=== PATIENT | male | born 1950 | race Caucasian/White ===

== ENCOUNTER 2022-08-16 20:00 | Emergency (ER) | payer OTHER, SELFPAY ==
[2022-08-16 20:01] VITALS: BP 133/82; PULSE 63; RESP 18; TEMP 36.6; O2SAT 98
--- NOTE | 2022-08-16 21:00 | PC.NURSE ---
pt to desk, the candy has gone down , no more discomfort in area. stated he would return if need be
== END 2022-08-16 22:10 | disposition left against medical advice (07) ==
LOC: ANHED 22:01
PROVIDERS: PCP Emergency Medicine
DX: T17.228A Food in pharynx causing other injury, initial encounter (principal)
CPT/HCPCS: 99199

== ENCOUNTER 2023-08-15 03:03 | Day surgery (SDC) | payer OTHER, SELFPAY ==
[2023-05-31 10:53] VITALS: BMI 27.4
--- NOTE | 2023-06-17 11:00 | PC.NURSE ---
Patient called regarding upcoming procedure. Reviewed preop instructions, appointment times, and procedure prep.
[2023-08-08 10:10] VITALS: BMI 26.6
[2023-08-15 10:15] VITALS: BP 126/89; PULSE 107; RESP 18; TEMP 36.2; O2SAT 98
[2023-08-15] MEDS: LACTATED RINGERS 1,000 ML 150 ML IV CONT (10:23)
--- NOTE | 2023-08-15 10:39 | WPDANESEPPF ---
Anes - Initial Pre Proc Eval Procedure: Operation Date: 08/15/23 11:30 Proposed Procedures p Screening Colonoscopy - Carlo Dupree MD Date/Time: 08/15/23 10:39 Surgeon: Carlo Dupree MD Pre Op Diagnosis: neoplasm screening Patient Data Age: 73 Gender: M Height: 1.73 m Weight: 86.1 kg Last Vital Signs Temp 97.1 F L 08/15/23 10:15 Pulse 107 H 08/15/23 10:15 Resp 18 08/15/23 10:15 BP 126/89 08/15/23 10:15 Pulse Ox 98 08/15/23 10:15 O2 Del Method Room Air 08/15/23 10:15 Allergies Allergy/AdvReac Type Severity Reaction Status Date / Time No Known Allergies Allergy Verified 08/15/23 10:13 Home Medications Medication Instructions Recorded Confirmed Type aspirin 81 mg tablet,delayed 81 mg PO DAILY 05/25/19 08/15/23 History release atorvastatin 40 mg tablet 40 mg PO DAILY 05/25/19 08/15/23 History metoprolol succinate 25 mg 25 mg PO DAILY 05/25/19 08/15/23 History tablet,extended release 24 hr timolol 0.25 % eye drops (Betimol) See Rx Instructions .Route .COMPLEX 05/25/19 08/15/23 History lorazepam 0.5 mg tablet (Ativan) 0.5 mg PO BID PRN anxiety #30 tabs 09/14/22 08/15/23 Rx pantoprazole 40 mg tablet,delayed 40 mg PO QAM #90 tabs 06/16/23 08/15/23 Rx release olanzapine 15 mg tablet See Rx Instructions .Route 08/05/23 08/15/23 Rx .COMPLEX #90 tabs escitalopram oxalate 20 mg tablet See Rx Instructions .Route 08/15/23 08/15/23 Rx .COMPLEX #90 tabs Patient hx anesthesia problems: none Family hx anesthesia problems: none Results Review: All pre-operative results and documents have been reviewed as part of the pre-operative evaluation. [facility] Past Medical History Medical History (Updated 09/14/22 @ 13:50 by Robert Hardy MD) Depression HLD (hyperlipidemia) Social History Social History Smoking status: Former smoker Tobacco type: cigarettes Smoking end date: 05/30/91 Alcohol intake: never Substance use: never Substance use type: does not use Living arrangements: with family Spiritual care concerns: No Anes - Eval Final PreProcedure Day of Procedure 08/15/23 10:39 Patient weight: obese Heart: regular rate and rhythm Lungs: clear to auscultation Airway: Mallampati scale class II Neurological: alert and oriented Last oral intake: >/= 8 hours ASA classification: III Emergent: no Anesthetic plan: proceed Anesthesia type and monitoring: general GIVS and standard monitoring Results Review: All pre-operative results and documents have been reviewed as part of the pre-operative evaluation. Informed Consent: The patient's anesthetic plan and its attendant risks and benefits were discussed with the patient/family/POA. Questions were solicited and answers provided to the satisfaction of the patient/family/POA.
--- NOTE | 2023-08-15 10:42 | PM.HPGS ---
History of Present Illness History of Present Illness Consent: Risks, benefits, and alternatives have been discussed and questions answered. Patient agrees to proceed with procedure. Chief complaint: neoplasm screening Narrative: Howard Bateman is a 73 year old male here for colonoscopy, last one 6 years ago Review of Systems Review of Systems: All systems reviewed & are unremarkable except as noted in HPI and below PMFSH Past Medical History Medical History (Updated 08/15/23 @ 10:43 by Carlo Dupree MD) Colon cancer screening Depression HLD (hyperlipidemia) Social History Social History Smoking status: Former smoker Tobacco type: cigarettes Smoking end date: 05/30/91 Alcohol intake: never Substance use: never Substance use type: does not use Living arrangements: with family Spiritual care concerns: No Meds Home Medications and Allergies Home Medications Medication Instructions Recorded Confirmed Type aspirin 81 mg tablet,delayed 81 mg PO DAILY 05/25/19 08/15/23 History release atorvastatin 40 mg tablet 40 mg PO DAILY 05/25/19 08/15/23 History metoprolol succinate 25 mg 25 mg PO DAILY 05/25/19 08/15/23 History tablet,extended release 24 hr timolol 0.25 % eye drops (Betimol) See Rx Instructions .Route .COMPLEX 05/25/19 08/15/23 History lorazepam 0.5 mg tablet (Ativan) 0.5 mg PO BID PRN anxiety #30 tabs 09/14/22 08/15/23 Rx pantoprazole 40 mg tablet,delayed 40 mg PO QAM #90 tabs 06/16/23 08/15/23 Rx release olanzapine 15 mg tablet See Rx Instructions .Route 08/05/23 08/15/23 Rx .COMPLEX #90 tabs escitalopram oxalate 20 mg tablet See Rx Instructions .Route 08/15/23 08/15/23 Rx .COMPLEX #90 tabs Allergies Allergy/AdvReac Type Severity Reaction Status Date / Time No Known Allergies Allergy Verified 08/15/23 10:13 Vital Signs Vital Signs - 24 hr 08/15/23 10:15 Temperature 97.1 F L Pulse Rate 107 H Respiratory Rate 18 Blood Pressure 126/89 Pulse Oximetry 98 Oxygen Delivery Room Air Exam Const: General: comfortable and no acute distress HENMT: Face/Nose/Sinus: Normal nares present Eyes: General: appearance normal, both eyes and all related structures Neck: Neck: no JVD Resp: Auscultation: clear to auscultation bilaterally Cardio: Rate: regular rate Rhythm: regular rhythm GI: Inspection: non-distended GI Palp: Yes Soft to palpation Skin: General skin exam: normal color Neuro: General: gait normal Speech: normal speech Extrem: General: normal to inspection Psych: Mental Status: mental status grossly normal Assessment and Plan Assessment and plan (1) Colon cancer screening: Code(s): Z12.11 - Encounter for screening for malignant neoplasm of colon Status: Acute Assessment and Plan: colonoscopy
[2023-08-15 11:04] VITALS: BP 123/74; PULSE 72; RESP 18; O2SAT 98
[2023-08-15 11:14] VITALS: BP 136/67; PULSE 66; RESP 22; O2SAT 97
[2023-08-15 11:24] VITALS: BP 124/82; PULSE 72; RESP 21; O2SAT 99
== END 2023-08-15 11:30 | disposition home or self-care (01) ==
PROVIDERS: PCP Emergency Medicine; Visit Provider Internal Medicine Gastroenterology
PROC: 0DJD8ZZ Inspection of Lower Intestinal Tract, Via Natural or Artificial Opening Endoscopic (ICD-10-PCS; CPT 45378; principal; 2023-08-15 11:30)
DX: Z12.11 Encounter for screening for malignant neoplasm of colon (principal); E78.5 Hyperlipidemia, unspecified; F32.A Depression, unspecified; E66.9 Obesity, unspecified; Z68.28 Body mass index [BMI] 28.0-28.9, adult; Z79.82 Long term (current) use of aspirin; Z87.891 Personal history of nicotine dependence
CPT/HCPCS: G0121; J2704; J7120

== ENCOUNTER 2023-09-27 08:04 | Outpatient (CLI) | payer OTHER, SELFPAY ==
--- NOTE | ~2023-09-27 | US_ITS ---
Abdominal Sonogram: Real-time sonographic imaging of the abdomen was performed. Clinical History: Varicose veins Findings: The liver appears normal with no evidence of mass lesion or bile duct dilatation. Main por bertha vein demonstrates normal direction of flow. The spleen is normal in size without evidence of foca l lesion. The gallbladder is absent, compatible prior cholecystectomy. The common bile duct measures 4 mm. The visualized pancreas, aorta, and IVC are unremarkable. The right kidney measures 9.6 cm i n length and the left kidney measures 10.8 cm. There is no hydronephrosis or renal calculus. Impression: Unremarkable abdominal ultrasound. Reviewed, dictated and finalized at location M. Impression: Unremarkable abdominal ultrasound.
== END 2023-09-27 08:05 | disposition home or self-care (01) ==
LOC: ANHIMG 08:08
PROVIDERS: PCP Emergency Medicine; Visit Provider Internal Medicine Gastroenterology
DX: I86.8 Varicose veins of other specified sites (principal)
CPT/HCPCS: 76700

== ENCOUNTER 2024-08-31 14:59 | Outpatient (CLI) | payer MEDICARE, SELFPAY ==
--- NOTE | ~2024-08-31 | CT_ITS ---
History: Dementia PROCEDURE: CT head without contrast. COMPARISON: 01/13/2019 TECHNIQUE: Axial imaging of the head performed from the skull base to the vertex without IV contrast. Sagittal a nd coronal reformations obtained. DLP: 605 mGy-cm FINDINGS: The ventricles are normal in size, shape and position. There is no mass, mass effect or midline shift. There is no abnormal extra-axial fluid collection or intracranial hemorrhage. Visualized paranasal sinuses are clear. The mastoid air cells are well aerated. No acute displaced fractures within the overlying cranium. Impression: No acute intracranial hemorrhage or suspicious mass effect. Reviewed, dictated and finalized at location A. Impression: No acute intracranial hemorrhage or suspicious mass effect.
== END 2024-08-31 15:00 | disposition home or self-care (01) ==
PROVIDERS: PCP Emergency Medicine; Visit Provider Emergency Medicine
DX: R25.1 Tremor, unspecified (principal); F03.90 Unspecified dementia, unspecified severity, without behavioral disturbance, psychotic disturbance, mood disturbance, and anxiety
CPT/HCPCS: 70450

== ENCOUNTER 2024-10-27 11:39 | Emergency (ER) | payer MEDICARE, SELFPAY ==
[2024-10-27] VITALS (28 sets, daily range): BP systolic 113–149; BP diastolic 64–101; PULSE 54–78; RESP 9–20; TEMP 36.7; O2SAT 94–100
--- NOTE | ~2024-10-27 | US_ITS ---
Limited ABDOMINAL ULTRASOUND (Doppler ultrasound interrogation techniques used as needed for this exa m.) Ordering provider: Zach Raines MD History: . portal vein abnormality . Comparison: None. FINDINGS: PANCREAS: Normal echotexture and size. PORTAL VEIN: Hepatopedal flow demonstrated. Numerous tortuous vessels are noted suggestive of caverno us transformation.. LIVER: Normal size and echotexture. No focal hepatic lesions or perihepatic fluid collections are carolyn ntified. BILIARY DUCTS: No intra or extrahepatic biliary dilation. Common bile duct measures 3.1 mm in diamete r which is normal for patient's age. GALLBLADDER: Surgically absent. IVC: Patent. FREE FLUID: None visualized within the upper abdomen. IMPRESSION: Cavernous transformation of the portal vein. Other appearances are unremarkable. Otherwise, [facility] Reviewed, dictated and finalized at location A. IMPRESSION: Cavernous transformation of the portal vein. Other appearances are unremarkable . Otherwise, normal limited abdominal ultrasound.
--- NOTE | ~2024-10-27 | CT_ITS ---
CT abdomen pelvis w con Ordering provider: Zach Raines MD History: 74 years Male with . Diarrhea, LLQ pain . Comparison: None. Technique: CT abdomen and pelvis with IV and without oral contrast. Automated exposure control and it erative reconstruction technique were employed. The dose-length product was 377.05 mGy-cm. 100 mL Omn ipaque 350 was given IV. Findings: VISUALIZED LOWER CHEST: Normal. UPPER ABDOMINAL ORGANS: Liver: Normal. Prominent vessels in the hilum of the liver is seen which may indicate cavernous trans formation of the portal vein. Ultrasound evaluation advised. Gallbladder: Status post cholecystectomy. Spleen: Normal. Stomach/duodenum: Sliding hiatus hernia. Pancreas: Normal. Adrenals: Normal. Kidneys: Tiny cysts in the left kidney midpole. PELVIC ORGANS: The bladder is underfilled. BOWEL AND MESENTERY: Colon: Thickening of the wall is seen involving the rectum, sigmoid colon and distal descending colon with fat stranding around the sigmoid colon suggestive of colitis versus diverticulitis. Minimal flu id in the left paracolic gutter and pelvis is seen. Proctitis is also noted. Normal appendix. Small Bowel: Normal. No obstruction. Peritoneum/mesentery: No free air or free fluid. No mesenteric lymphadenopathy. RETROPERITONEUM: Mild atheromatous disease of the abdominal aorta. No retroperitoneal lymphadenopat hy. MUSCULOSKELETAL: Superficial soft tissues: The superficial soft tissues are normal. Bones: Age appropriate degenerative changes of the spine. IMPRESSION: 1. Thickening of the rectosigmoid and distal descending colon with surrounding fat stranding suggest deon of diverticulitis versus colitis with fluid seen in the left paracolic gutter and pelvis. No absc ess formation or free air is seen. Clinical correlation and follow-up advised. 2. Prominent vessels in the lois hepatis which may indicate cavernous transformation of the portal vein. Ultrasound evaluation advised. 3. Sliding hiatus hernia. Reviewed, dictated and finalized at location A. IMPRESSION: 1. Thickening of the rectosigmoid and distal descending colon with surrounding fat stranding suggestive of diverticulitis versus colitis with fluid seen in t he left paracolic gutter and pelvis. No abscess formation or free air is seen. Clinical correlation and follow-up advised. 2. Prominent vessels in the lois hepatis which may indicate cavernous transfo rmation of the portal vein. Ultrasound evaluation advised. 3. Sliding hiatus hernia.
[2024-10-27 11:56] LABS: Basophils Percent Auto 0.5 % (0.2-1.2); Eosinophils Absolute Auto 0.1 K/mm3 (0-0.3); Eosinophils Percent Auto 1.7 % (0-4.4); Hematocrit 41.5 % (42.0-52.0); Immature Granulocyte Absolute 0.04 K/mm3 (0.00-0.031); Immature Granulocyte Percent A 0.5 % (0-0.5); Lymphocytes Absolute Auto 0.94 K/mm3 (0.9-3.2); Lymphocytes Percent Auto 12.4 % (18.3-44.2); Mean Corpuscular HGB Conc 31.3 g/dl (32-36); Mean Corpuscular Hemoglobin 29.5 pg (26-34); Mean Corpuscular Volume 94.1 fl (80-100); Mean Platelet Volume 8.9 fl (7.4-10.4); Monocytes Absolute Auto 0.6 K/mm3 (0.1-0.6); Monocytes Percent Auto 8.1 % (2.6-8.5); Neutrophils Absolute Auto 5.8 K/mm3 (1.3-6.7); Neutrophils Percent Auto 76.8 % (45.5-73.1); Platelet Count Result 354 k/mm3 (150-375); Red Blood Count 4.41 M/mm3 (4.6-6.20); Red Cell Distribution Width 12.5 % (11.5-14.5); White Blood Count 7.6 K/mm3 (4.5-10.0)
[2024-10-27 12:05] LABS: Alanine Aminotransferase 97 U/L (6-50); Albumin Level 3.6 g/dL (3.5-5.1); Alkaline Phosphatase 202 U/L (38-126); Anion Gap 9 mmol/L (4-12); Aspartate Amino Transferase 101 U/L (17-59); Bilirubin,Total 0.8 mg/dL (0.2-1.3); Blood Urea Nitrogen 10 mg/dL (9-20); Calcium 8.7 mg/dL (8.4-10.2); Carbon Dioxide 24 mmol/L (22-30); Chloride 106 mmol/L (98-107); Estimated CRCL calculation 73 ml/min; Estimated Glomerular Filt Rate > 60; Glucose 120 mg/dL (65-110); Potassium 3.5 mmol/L (3.4-5.0); Sodium 139 mmol/L (137-145)
[2024-10-27 12:07] LABS: INR 1.3; Partial Thromboplastin Time 28.7 Seconds (22.3-36.8); Prothrombin Time 15.8 Seconds (11.1-14.7)
[2024-10-27] MEDS: SODIUM CHLORIDE 0.9% IV 2,000 ML 999 ML IV CONT (13:50)
[2024-10-27 14:26] LABS: Influenza A QL RT-PCR Negative (Negative); Influenza B QL RT-PCR Negative (Negative); RSV RNA, RT-PCR Negative (Negative); SARS-CoV-2 RNA PCR Negative (Negative)
--- NOTE | 2024-10-27 14:39 | ED_ITS ---
HPI - General Adult General Chief complaint: Weakness Stated complaint: weak, white stool, wheezy stomach Time Seen by Provider: 10/27/24 12:45 History of Present Illness HPI narrative: 74-year-old male presenting for weakness. Patient had watery diarrhea for the last week. He has also had decreased oral intake and weakness. Patient denies fevers chills chest pain difficulty breathing or urinary symptoms. No sick contacts at home. No recent antibiotics. No travel history. Related Data Home Medications ?Medication ?Instructions ?Recorded ?Confirmed ?Last Taken ?Type aspirin 81 mg tablet,delayed 81 mg PO DAILY 05/25/19 08/21/24 08/13/23 History release atorvastatin 40 mg tablet 40 mg PO DAILY 05/25/19 08/21/24 08/13/23 History metoprolol succinate 25 mg 25 mg PO DAILY 05/25/19 08/21/24 08/13/23 History tablet,extended release 24 hr timolol 0.25 % eye drops (Betimol) See Rx Instructions .Route .COMPLEX 05/25/19 08/21/24 08/13/23 History Allergies Allergy/AdvReac Type Severity Reaction Status Date / Time No Known Allergies Allergy Verified 10/27/24 11:41 [facility] Past Medical History Medical History Rash and nonspecific skin eruption URI with cough and congestion Sinus congestion Excessive ear wax Insomnia Fatigue Vitamin D deficiency Rash of hands Mixed hyperlipidemia Gastroesophageal reflux disease without esophagitis Cardiac arrhythmia Candidal dermatitis ASHD (arteriosclerotic heart disease) Colonic varices Colon cancer screening Depression HLD (hyperlipidemia) Social History Social History Smoking status: Former smoker Tobacco type: cigarettes Smoking end date: 05/30/91 Alcohol intake: never Substance use: never Substance use type: does not use Do You Feel Safe in your Home?: Yes Lack of Transportation: No Lack of Food: Never True Current Housing: I Have Housing Concerned About Future Housing: No Difficulty Paying Gas/Electric Bills: No Difficulty Paying for Meds: No Currently Unemployed: No Education: Decline to Answer Difficulty w/ Childcare or Family Care: No Living arrangements: with family Spiritual care concerns: No Exam 2 Narrative: APPEARANCE: No apparent distress. Head: atraumatic. EYES: EOMI, NOSE: Atraumatic NECK: Trachea midline RESPIRATORY: No increased rate of breathing clear to auscultation CARDIOVASCULAR: RRR, no peripheral edema ABDOMINAL: Tenderness in the left abdomen without guarding or rebound no CVA tenderness MUSCULOSKELETAl: No obvious deformities NEURO: Alert. Moving 4/4 extremities SKIN:: Warm, dry. Normal color PSYCHIATRIC: Normal affect Course Vital Signs Vital signs: Vital Signs Temperature 98.1 F 10/27/24 11:42 Pulse Rate 74 10/27/24 11:42 Respiratory Rate 20 10/27/24 11:42 Blood Pressure 123/82 10/27/24 11:42 Pulse Oximetry 94 10/27/24 11:42 Oxygen Delivery Room Air 10/27/24 11:42 Temperature 98.1 F 10/27/24 11:42 Pulse Rate 64 10/27/24 15:33 Respiratory Rate 14 10/27/24 15:33 Blood Pressure 113/79 10/27/24 15:33 Pulse Oximetry 98 10/27/24 15:33 Oxygen Delivery Room Air 10/27/24 11:42 Medical Decision Making [facility] Narrative Medical decision making narrative: -Course: 74-year-old male presenting with weakness after having diarrhea for approximately 1 week. He has also had decreased oral intake. He has some tenderness in the left lower quadrant. Diarrhea has been watery without blood. No fevers. CT abdomen pelvis showed colitis versus diverticulitis of the distal colon. 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 I consulted Ivan and discussed patient's findings. 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 Patient will be treated for diverticulitis. After he received fluids he was feeling much better and was able ambulate around the ED with steady gait and eat flu food without difficulty. He will be discharged to follow-up with GI. Return precautions were discussed with the patient and his they will have a low threshold to return to the ED if his condition is to worsen. -DDX includes but is not limited to: gastroenteritis, sepsis, dehydration, UTI, pneumonia, viral syndrome Vital Signs Vital Signs: Vital Signs Temperature 98.1 F 10/27/24 11:42 Pulse Rate 74 10/27/24 11:42 Respiratory Rate 20 10/27/24 11:42 Blood Pressure 123/82 10/27/24 11:42 Pulse Oximetry 94 10/27/24 11:42 Oxygen Delivery Room Air 10/27/24 11:42 Temperature 98.1 F 10/27/24 11:42 Pulse Rate 64 10/27/24 15:33 Respiratory Rate 14 10/27/24 15:33 Blood Pressure 113/79 10/27/24 15:33 Pulse Oximetry 98 10/27/24 15:33 Oxygen Delivery Room Air 10/27/24 11:42 Lab Data 10/27/24 11:49 10/27/24 11:48 Labs: Lab Results 10/27/24 10/27/24 10/27/24 Range/Units 11:48 11:49 13:47 WBC 7.6 (4.5-10.0) K/mm3 RBC 4.41 L (4.6-6.20) M/mm3 Hgb 13.0 L (14.0-18.0) g/dL Hct 41.5 L (42.0-52.0) % MCV 94.1 (80-100) fl MCH 29.5 (26-34) pg MCHC 31.3 L (32-36) g/dl RDW 12.5 (11.5-14.5) % Plt Count 354 (150-375) k/mm3 MPV 8.9 (7.4-10.4) fl Immature Gran % (Auto) 0.5 (0-0.5) % Neut % (Auto) 76.8 H (45.5-73.1) % Lymph % (Auto) 12.4 L (18.3-44.2) % [place] % (Auto) 8.1 (2.6-8.5) % Eos % (Auto) 1.7 (0-4.4) % Baso % (Auto) 0.5 (0.2-1.2) % Lymph # (Auto) 0.94 (0.9-3.2) K/mm3 [place] # (Auto) 0.6 (0.1-0.6) K/mm3 Eos # (Auto) 0.1 (0-0.3) K/mm3 Baso # (Auto) 0.0 (0.0-0.1) K/mm3 Abs Immat Gran (auto) 0.04 H (0.00-0.031) K/mm3 Absolute Neuts (auto) 5.8 (1.3-6.7) K/mm3 Absolute Nucleated RBC 0.000 (0.0-0.012) K/mm3 Nucleated RBC % 0.0 (0.0-0.2) % PT 15.8 H (11.1-14.7) Seconds INR 1.3 APTT 28.7 (22.3-36.8) Seconds Sodium 139 (137-145) mmol/L Potassium 3.5 (3.4-5.0) mmol/L Chloride 106 (98-107) mmol/L Carbon Dioxide 24 (22-30) mmol/L Anion Gap 9 (4-12) mmol/L BUN 10 (9-20) mg/dL Creatinine 0.76 (0.7-1.3) mg/dL Estim Creat Clear Calc 73 ml/min Estimated GFR > 60 (59 - ) Glucose 120 H (65-110) mg/dL Calcium 8.7 (8.4-10.2) mg/dL Total Bilirubin 0.8 (0.2-1.3) mg/dL AST 101 H (17-59) U/L ALT 97 H (6-50) U/L Alkaline Phosphatase 202 H (38-126) U/L Total Protein 8.0 (6.3-8.2) g/dL Albumin 3.6 (3.5-5.1) g/dL Urine Color (Yellow) Urine Appearance (Clear) Urine pH (5.0-9.0) Ur Specific [place] (1.001-1.035) Urine Protein (Negative) mg/dL Urine Glucose (UA) (Negative) mg/dL Urine Ketones (Negative) mg/dL Ur Blood (Man) (Negative) Urine Nitrate (Negative) Urine Bilirubin (Negative) Urine Urobilinogen (<2.0) mg/dL Leukocyte Esterase Rfl (Negative) JA/UL Influenza A (RT-PCR) Negative (Negative) Influenza B (RT-PCR) Negative (Negative) RSV (RT-PCR) Negative (Negative) SARS-CoV-2 RNA (RT-PCR) Negative (Negative) Blood Type B Negative Antibody Screen Negative 10/27/24 Range/Units 15:23 WBC (4.5-10.0) K/mm3 RBC (4.6-6.20) M/mm3 Hgb (14.0-18.0) g/dL Hct (42.0-52.0) % MCV (80-100) fl MCH (26-34) pg MCHC (32-36) g/dl RDW (11.5-14.5) % Plt Count (150-375) k/mm3 MPV (7.4-10.4) fl Immature Gran % (Auto) (0-0.5) % Neut % (Auto) (45.5-73.1) % Lymph % (Auto) (18.3-44.2) % [place] % (Auto) (2.6-8.5) % Eos % (Auto) (0-4.4) % Baso % (Auto) (0.2-1.2) % Lymph # (Auto) (0.9-3.2) K/mm3 [place] # (Auto) (0.1-0.6) K/mm3 Eos # (Auto) (0-0.3) K/mm3 Baso # (Auto) (0.0-0.1) K/mm3 Abs Immat Gran (auto) (0.00-0.031) K/mm3 Absolute Neuts (auto) (1.3-6.7) K/mm3 Absolute Nucleated RBC (0.0-0.012) K/mm3 Nucleated RBC % (0.0-0.2) % PT (11.1-14.7) Seconds INR APTT (22.3-36.8) Seconds Sodium (137-145) mmol/L Potassium (3.4-5.0) mmol/L Chloride (98-107) mmol/L Carbon Dioxide (22-30) mmol/L Anion Gap (4-12) mmol/L BUN (9-20) mg/dL Creatinine (0.7-1.3) mg/dL Estim Creat Clear Calc ml/min Estimated GFR (59 - ) Glucose (65-110) mg/dL Calcium (8.4-10.2) mg/dL Total Bilirubin (0.2-1.3) mg/dL AST (17-59) U/L ALT (6-50) U/L Alkaline Phosphatase (38-126) U/L Total Protein (6.3-8.2) g/dL Albumin (3.5-5.1) g/dL Urine Color Yellow (Yellow) Urine Appearance Clear (Clear) Urine pH 7.5 (5.0-9.0) Ur Specific [place] > 1.045 H (1.001-1.035) Urine Protein Negative (Negative) mg/dL Urine Glucose (UA) Negative (Negative) mg/dL Urine Ketones Negative (Negative) mg/dL Ur Blood (Man) Negative (Negative) Urine Nitrate Negative (Negative) Urine Bilirubin Negative (Negative) Urine Urobilinogen 1.0 (<2.0) mg/dL Leukocyte Esterase Rfl Negative (Negative) JA/UL Influenza A (RT-PCR) (Negative) Influenza B (RT-PCR) (Negative) RSV (RT-PCR) (Negative) SARS-CoV-2 RNA (RT-PCR) (Negative) Blood Type Antibody Screen Discharge Plan Discharge Clinical Impression: Colitis, Dehydration, Cavernous transformation of portal vein Patient Disposition: Home Condition: Stable Instructions: Antibiotic Form, Colitis (ED) Additional Instructions: He was seen emergency department for colitis/diverticulitis. Please complete course of Augmentin. Please follow-up with the GI due to her listed below for further management her colitis as well as further evaluation your cavernous portal vein transformation. If you are getting worse, you develop bloody diarrhea fevers or severe abdominal pain please return to the ED immediately. Patient Language: Tamazight Prescriptions: New ondansetron 4 mg tablet,disintegrating 4 mg PO Q8H PRN (Reason: nausea and vomiting) Qty: 30 0RF amoxicillin-pot clavulanate 875-125 mg tablet 1 tablet PO Q8H Qty: 15 0RF No Action venlafaxine 150 mg capsule,extended release 24hr 150 mg PO DAILY Qty: 90 2RF Betimol 0.25 % drops See Rx Instructions .ROUTE .COMPLEX Rx Instructions: instill 1 drop by ophthalmic route 2 times everyday into affected eye(s) ; metoprolol succinate 25 mg tablet extended release 24 hr 25 mg PO DAILY atorvastatin 40 mg tablet 40 mg PO DAILY aspirin 81 mg tablet,delayed release (DR/EC) 81 mg PO DAILY donepezil [Aricept] 10 mg tablet 10 mg PO DAILY Qty: 90 2RF lorazepam [Ativan] 0.5 mg tablet 0.5 mg PO BID PRN (Reason: anxiety) Qty: 30 1RF pantoprazole 40 mg tablet,delayed release (DR/EC) See Rx Instructions .ROUTE .COMPLEX Qty: 90 2RF Dose Instruction: TAKE 1 TABLET BY MOUTH ONCE DAILY . APPOINTMENT REQUIRED FOR FUTURE REFILLS Rx Instructions: TAKE 1 TABLET BY MOUTH ONCE DAILY . APPOINTMENT REQUIRED FOR FUTURE REFILLS olanzapine 15 mg tablet See Rx Instructions .ROUTE .COMPLEX Qty: 90 2RF Dose Instruction: TAKE 1 TABLET BY MOUTH AT BEDTIME Rx Instructions: TAKE 1 TABLET BY MOUTH AT BEDTIME Follow-up/Referrals: Robert Hardy MD [Primary Care Provider] - Carlo Dupree MD [Physician] - 1 Week (Diverticulitis/Colitis, Cavernous transformation of portal vein)
[2024-10-27 15:28] LABS: Add Urine Microscopic? NO; Appearance Urine Clear (Clear); Bilirubin Urine Negative (Negative); Blood Urine Negative (Negative); Color Urine Yellow (Yellow); Glucose Urine UA Negative (Negative); Ketones Urine Negative (Negative); Leukocyte Esterase Ur Negative LEU/UL (Negative); Nitrate Urine Negative (Negative); Protein Urine Negative (Negative); Specific Grav Ur > 1.045 (1.001-1.035); pH Urine 7.5 (5.0-9.0)
== END 2024-10-27 18:26 | disposition home or self-care (01) ==
PROVIDERS: Emergency Medicine; Emergency Provider Emergency Medicine; PCP Emergency Medicine
DX: K52.9 Noninfective gastroenteritis and colitis, unspecified (principal); E86.0 Dehydration; I81 Portal vein thrombosis; I25.10 Atherosclerotic heart disease of native coronary artery without angina pectoris; E78.2 Mixed hyperlipidemia; Z20.822 Contact with and (suspected) exposure to COVID-19
CPT/HCPCS: 36415; 74177; 76705; 80053; 81003; 85025; 85610; 85730; 86850; 86900; 86901; 87637; 96360; 96361; 99284; J7030; Q9967

== ENCOUNTER 2024-11-14 11:59 | Outpatient (CLI) | payer MEDICARE, SELFPAY ==
--- NOTE | ~2024-11-14 | CT_ITS ---
EXAMINATION: CT abdomen pelvis w con DATE: 11/14/2024 12:28 INDICATION: Left lower quadrant abdominal pain. TECHNIQUE: Computed tomography (CT) of the abdomen and pelvis was performed with 100 mL Omnipaque-350 intravenous contrast. Automated exposure control and iterative reconstruction technique were employe d. The dose-length product was 383.77 mGy-cm. COMPARISON: 10/27/2024 FINDINGS: Lung bases are clear. Heart size is normal. Atherosclerotic coronary artery calcifications. No perica rdial or pleural effusion. Small sliding-type hiatal hernia. Cholecystectomy clips at the gallbladder fossa. There are multiple contrast opacified vessels along side the patient main portal vein at the lois hepatis which suggests possible cavernous transformation related to since resolved portal venou s thrombosis. Splenic and superior mesenteric veins are also patent as are the left and right portal veins. Liver, spleen, pancreas, bilateral adrenal glands and right kidney are normal. 1 cm left renal cyst. There is wall thickening along the descending and sigmoid colon with surrounding inflammatory stranding consistent with colitis. Small bowel and appendix are normal. Decompressed bladder is unrem arkable. Small amount of nonorganized ascites in the pelvis and along the left paracolic gutter. No o rganized abscess or free intraperineal gas. No pathologically enlarged abdominal or pelvic lymphadeno sandhya. Mild lumbar levocurvature with moderate spondylosis. Also moderate lower thoracic spondylosis with minimal to mild chronic anterior wedging of a few lower thoracic vertebral bodies. IMPRESSION: 1. Distal colitis which could be infectious, inflammatory or less likely ischemic in etiology. 2. Small sliding-type hiatal hernia. Reviewed, dictated and finalized at location A. IMPRESSION: 1. Distal colitis which could be infectious, inflammatory or less likely ischem ic in etiology. 2. Small sliding-type hiatal hernia.
== END 2024-11-14 12:00 | disposition home or self-care (01) ==
PROVIDERS: PCP Emergency Medicine; Visit Provider Nurse Practitioner
DX: I81 Portal vein thrombosis (principal); R10.32 Left lower quadrant pain; R19.04 Left lower quadrant abdominal swelling, mass and lump; R68.89 Other general symptoms and signs; K44.9 Diaphragmatic hernia without obstruction or gangrene; K52.89 Other specified noninfective gastroenteritis and colitis
CPT/HCPCS: 74177; Q9967

== ENCOUNTER 2024-11-27 19:30 | Inpatient (IN) | payer MEDICARE, SELFPAY ==
--- NOTE | ~2024-11-27 | MR_ITS ---
EXAMINATION: MR cervical spine wo con DATE: 11/29/2024 12:34 INDICATION: Weakness TECHNIQUE: Magnetic resonance imaging (MRI) of the cervical spine was performed without intravenous c ontrast. Sequences included sagittal T2-weighted FSE, sagittal T2-weighted FS FSE, sagittal T1-weight ed FSE, axial MERGE and axial T2-weighted FSE. COMPARISON: None FINDINGS: Bone alignment is normal. -C7 instrumented anterior spinal fusion with metallic magnetic field artifa ct consistent with interbody fusion device and anterior plate-screw fixation at each level. Vertebral body heights are normal. Bone marrow signal intensity is normal. Mild disc height loss at C4-C5. Cor d signal intensity is normal. 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 Cervical soft tissues are otherwise unremarkable. The following disc levels are speci fically discussed: C2-C3: The disc does not extend beyond the endplate margin. There is mild left uncovertebral joint os teoarthritis. There is severe right and moderate to severe left facet joint osteoarthritis. There is mild bilateral neural foraminal stenosis. There is no central canal stenosis. C3-C4: The disc does not extend beyond the endplate margin. There is mild bilateral uncovertebral jamilah nt osteoarthritis. There is moderate left and severe right facet joint osteoarthritis. There is mild bilateral neural foraminal stenosis. There is no central canal stenosis. C4-C5: Disc is bulging with annular fissure There is moderate right and moderate left uncovertebral j oint osteoarthritis. There is moderate right and severe left facet joint osteoarthritis. There is mil d right and moderate left neural foraminal stenosis. There is mild central canal stenosis. C5-C6: Disc space is fused. There is mild bilateral facet joint osteoarthritis. There is mild bilater al neural foraminal stenosis. There is no central canal stenosis. C6-C7: Disc space is fused. There is mild bilateral facet joint osteoarthritis. There is mild bilater al neural foraminal stenosis. There is no central canal stenosis. C7-T1: The disc does not extend beyond the endplate margin. There is no uncovertebral joint osteoarth ritis. There is severe left and moderate to severe right facet joint osteoarthritis. There is mild bi lateral neural foraminal stenosis. There is no central canal stenosis. IMPRESSION: 1. Mild cervical spondylosis with instrumented C5-C7 anterior spinal fusion and moderate to severe mu ltilevel facet osteoarthritis. 2. 2.1 cm fusiform aneurysm and dissection at the proximal right subclavian artery. Reviewed, dictated and finalized at location B. IMPRESSION: 1. Mild cervical spondylosis with instrumented C5-C7 anterior spinal fusion and moderate to severe multilevel facet osteoarthritis. 2. 2.1 cm fusiform aneurysm and dissection at the proximal right subclavian arielle willis.
--- NOTE | ~2024-11-27 | MR_ITS ---
EXAMINATION: MR MRCP wo/w con/w 3D wo ind DATE: 11/29/2024 12:38 INDICATION: Mass at the head of the pancreas on CT TECHNIQUE: Magnetic resonance imaging (MRI) of the abdomen was performed without and with 16 mL Multi red intravenous contrast. Sequences included coronal T2-weighted SS-FSE, coronal T2-weighted FS SS- FSE, coronal T2-weighted FS FIESTA, axial T2-weighted FS FIESTA, axial T2-weighted FIESTA, sagittal T 2-weighted SS-FSE, axial T1-weighted dual-echo FSPGR, axial T2-weighted SS-FSE, axial T1-weighted LAV A, axial T2-weighted STIR FSE. Thick-slab T2-weighted FRFSE-XL images were obtained for magnetic reso nance cholangiopancreatography (MRCP). Rotating maximum intensity projection 3-D reconstructions of t he volumetric data were created by the technologist. Postcontrast sequences included a time course of axial T1-weighted LAVA. COMPARISON: CT dated 11/27/2024 FINDINGS: ABDOMEN MRI: Heart size is normal. No pericardial or pleural effusion. Median sternotomy wires. Additional magneti c field artifact associated with cholecystectomy clips the gallbladder fossa. Again noted is cavernou s transformation of the portal vein at the lois hepatis. The main portal vein, splenic and superior mesenteric veins remain patent with contrast opacification without evident intraluminal filling defec ts. Liver, spleen, pancreas, bilateral adrenal glands and right kidney are normal. No masses identifi ed at the head of the pancreas. Upon further review the region of decreased attenuation at the head o f the pancreas corresponds to mixing of opacified blood arriving from the superior mesenteric vein an d contrast opacified blood from the splenic vein in the proximal main portal vein. 1.2 cm left renal cyst. There is small amount of ascites scattered throughout the abdomen and visualized pelvis most pr ominent along the left paracolic gutter. No bowel obstruction. Persistent wall thickening along the d escending colon. No pathologically enlarged abdominal or pelvic lymphadenopathy. Bone marrow signal i s normal throughout. ABDOMEN MRCP: No intrahepatic biliary ductal dilation. The common bile duct measures up to 6 and 7 mm in maximal di ameter which is within normal limits for age. No choledocholithiasis or other filling defects or stri ctures. Main pancreatic duct is also normal measuring approximately 2.5 mm at the head of the pancrea s. IMPRESSION: 1. 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 The splenic, superior mesenteric , main and left and right portal veins all remain patent. 2. Normal pancreas. Artifactual appearance of a mass at the head of the pancreas on prior CT results from mixing of unopacified blood in the main portal vein due to arterial phase of contrast. 3. Persistent diffuse wall thickening along the descending colon consistent with colitis. 4. Small amount of likely reactive ascites throughout the abdomen and pelvis. Reviewed, dictated and finalized at location B. IMPRESSION: 1. 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 The spleni c, superior mesenteric, main and left and right portal veins all remain patent. 2. Normal pancreas. Artifactual appearance of a mass at the head of the pancrea s on prior CT results from mixing of unopacified blood in the main portal vein due to arterial phase of contrast. 3. Persistent diffuse wall thickening along the descending colon consistent wit h colitis. 4. Small amount of likely reactive ascites throughout the abdomen and pelvis.
--- NOTE | ~2024-11-27 | MR_ITS ---
EXAMINATION: MR brain/brain stem wo/w con DATE: 11/28/2024 11:31 INDICATION: Dizziness and weakness TECHNIQUE: Magnetic resonance imaging (MRI) of the brain and brainstem was performed without and with 15 mL Multihance intravenous contrast. Sequences included sagittal and axial T1-weighted SE, axial d iffusion-weighted FS SE, axial 3D SWAN, axial T2-weighted FLAIR, and axial T2-weighted FSE. Postcontr ast axial and coronal T1-weighted SE was obtained. Apparent diffusion coefficient (ADC) maps were cre ated. COMPARISON: Head CT dated 11/27/2024 and brain MR dated 01/14/2019 FINDINGS: There are no areas of restricted diffusion to suggest acute infarction. No intracranial hemorrhage or abnormal intracranial mass lesion. There are scattered areas of nonspecific increased T2-weighted si gnal intensity in the cerebral white matter, predominantly involving the deep and periventricular whi te matter which is within normal limits for age and likely sequela of chronic small vessel ischemic d isease. There are a couple small foci of susceptibility artifact in the left and right cerebellar hem ispheres consistent with sequela of chronic microhemorrhage such as in the setting of hypertension. T he ventricles are symmetric and normal in size. There are no abnormal extra-axial fluid collections. Flow voids are seen in the cerebral arteries on the T2-weighted sequences consistent with their expec laya patency. Mild mucosal thickening the paranasal sinuses with change of prior bilateral antral wind ow procedures better appreciated on prior CT. Visualized orbits and soft tissues are unremarkable. Th ere are no areas of abnormal enhancement on the post contrast images. IMPRESSION: 1. No acute intracranial process or abnormally enhancing brain lesions. 2. A couple small foci of susceptibility artifact in the bilateral cerebral hemispheres consistent wi th sequela of chronic microhemorrhage such as in the setting of hypertension. Differential would also include less likely amyloid angiopathy. Reviewed, dictated and finalized at location A. IMPRESSION: 1. No acute intracranial process or abnormally enhancing brain lesions. 2. A couple small foci of susceptibility artifact in the bilateral cerebral hem ispheres consistent with sequela of chronic microhemorrhage such as in the sett ing of hypertension. Differential would also include less likely amyloid angiop athy.
--- NOTE | ~2024-11-27 | XR_ITS ---
XR chest 2V Ordering provider: Yvonne English PA-C History: 74 years Male with . dizziness . Comparison: January 13, 2019 FINDINGS: MEDIASTINUM: The cardiac silhouette is not enlarged. Postoperative changes in the mediastinum. LUNGS: No infiltrates, effusions or pneumothorax. OTHER: No free air under the diaphragm. IMPRESSION: No acute cardiopulmonary pathology. Reviewed, dictated and finalized at location A.
--- NOTE | ~2024-11-27 | CT_ITS ---
CTA chest abdomen pelvis Ordering provider: Yvonne English PA-C History: . shoulder pain, abdominal pain, sob . Comparison: November 14, 2024 CT abdomen Technique: CT angiogram chest, abdomen and pelvis was performed following timed intravenous injection of contrast. Thin slice axial images and reformatted coronal images were obtained. Three dimensional reformatted images of the chest were also obtained using a [employer] workstation. Radiation reduction technique utilized. The dose-length product was 672.8 mGy-cm. 100 mL Omnipaque 350 was given IV. FINDINGS: CHEST: --THORACIC AORTA: Normal. No aneurysm, dissection or mediastinal hematoma. --GREAT VESSELS: Narrowing of the right subclavian artery is seen with a pseudoaneurysm measuring 1.9 x 3.4 cm. The neck measures 9 x 3.2 mm. Another area of communication proximally is not excluded and measures 6 mm. Other vessels are unremarkable. --PULMONARY ARTERIES: No pulmonary embolus. --VISUALIZED THORACIC INLET: Normal. --MEDIASTINUM: Coronary arteries: Mild atheromatous disease. Heart/other: The heart is not enlarged. Lymph nodes: No mediastinal or hilar adenopathy. Calcified lymph node is seen in the right azygous ar ea. Postoperative changes in the mediastinum. Lucency seen on the right side adjacent to the esophagus at the level of the thyroid which may be a d iverticulum. Much --LUNGS: Dependent atelectatic changes. Underlying fibrotic changes. No pulmonary nodules or masses. No infilt rates or effusions. No pneumothorax. --MUSCULOSKELETAL: Superficial soft tissues: The superficial soft tissues are normal. Bones: Age appropriate degenerative changes of the spine. ABDOMEN/PELVIS: --MUSCULOSKELETAL: Bones: Age appropriate degenerative changes of the spine. Superficial soft tissues: The superficial soft tissues are normal. --UPPER ABDOMINAL ORGANS: Liver: Normal. Cavernous transformation is seen in the lois hepatis area. Gallbladder: Status post cholecystectomy. Spleen: Normal. Stomach/duodenum: Sliding hiatus hernia. Pancreas: Hypodensity seen in the head of the pancreas which may be a mass. This area measures 1.5 x 3.1 cm. MRI is advised. Slightly prominent pancreatic duct is noted. Adrenals: Normal. Kidneys: Small cyst in the left kidney midpole. --PELVIC ORGANS: The bladder is underfilled with thickened wall. No bladder stones. --BOWEL AND MESENTERY: Colon: Thickening of the wall of the sigmoid and descending colon is seen with surrounding fat strand ing. Prominent vessels are noted with dilatation of one of the branches of the inferior mesenteric ar sushila which measures 9 mm. Suggestive of aneurysmal dilatation in the area. The changes may be due to inflammatory process in the colon versus infectious colitis. Ischemia is less likely. Thickening of t he sigmoid and descending colon wall is also seen. Thickening of the wall of the cecum is also sugges tive but this also can be due to fluid. Colonoscopy is advised for further evaluation. Mesenteritis i s in the differential. The appendix is not demonstrated. Small Bowel: Normal. No obstruction. Peritoneum/mesentery: No free air or free fluid. No mesenteric lymphadenopathy. --RETROPERITONEUM: No retroperitoneal lymphadenopathy. --ARTERIES: ABDOMINAL AORTA: Mild atheromatous disease. No aneurysm or dissection. RENAL ARTERIES: Atherosclerotic changes at the origin of the left. No significant stenosis. CELIAC AXIS: Atherosclerotic changes of the origin. No significant stenosis. SMA: Normal. BEN: Dilatation of the branches around the colon. ILIAC AND VISUALIZED FEMORAL ARTERIES: Normal. MESENTERIC ARTERIES: Normal. IMPRESSION: CHEST: 1. 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 2. No pulmonary embolism. No aortic dissection or aneurysm. 3. No acute cardiopulmonary pathology. ABDOMEN/PELVIS: 1. Fat stranding, thickening of the wall and prominent vessels around the sigmoid and descending col on. Differential include inflammatory versus infectious colitis. Ischemic bowel disease and mesenteri tis are less likely. Clinical correlation and follow-up advised. 2. 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 3. Possible thickening in the wall of the cecum. Colonoscopy advised. 4. 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 5. Highly suggestive mass in the head of the pancreas. MRI evaluation advised. Yvonne English PA-C was notified with the result of the patient at 10:55 PM on November 27, 2024 Reviewed, dictated and finalized at location A. IMPRESSION: CHEST: 1. 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 2. No pulmonary embolism. No aortic dissection or aneurysm. 3. No acute cardiopulmonary pathology. ABDOMEN/PELVIS: 1. Fat stranding, thickening of the wall and prominent vessels around the sigm oid and descending colon. Differential include inflammatory versus infectious c olitis. Ischemic bowel disease and mesenteritis are less likely. Clinical corre lation and follow-up advised. 2. 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 3. Possible thickening in the wall of the cecum. Colonoscopy advised. 4. 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 5. Highly suggestive mass in the head of the pancreas. MRI evaluation advised. Yvonne English PA-C was notified with the result of the patient at 10:55 PM on November 27, 2024
--- NOTE | ~2024-11-27 | US_ITS ---
EXAMINATION: US retroperitoneal duplex ltd DATE: 11/29/2024 08:43 INDICATION: Portal vein thrombosis with cavernous transformation TECHNIQUE: Multiple grayscale, color Doppler, and pulsed Doppler images of the central vascular struc tures in the upper abdomen including specifically the portal, splenic and superior mesenteric veins. COMPARISON: None. FINDINGS: The main, left and right portal veins appear patent with no filling defects and with normal direction al flow and waveforms on color Doppler. Similarly in the the splenic and superior mesenteric veins ar e patent with normal directional flow. Normal arterial waveform with brisk systolic upstroke in the s uperior mesenteric artery. Visualized proximal abdominal aorta and inferior vena cava are normal. IMPRESSION: 1. Unremarkable study the portal venous system with patent splenic, superior mesenteric and portal v eins with no evident thrombus. Reviewed, dictated and finalized at location B. IMPRESSION: 1. Unremarkable study the portal venous system with patent splenic, superior m esenteric and portal veins with no evident thrombus.
--- NOTE | ~2024-11-27 | CT_ITS ---
CT brain wo con Ordering provider: Yvonne English PA-C History: 74 years Male with . dizziness . Comparison: August 31, 2024 Technique: CT of the head without contrast. Radiation reduction technique utilized. The dose-length p roduct was 681 mGy-cm. FINDINGS: BRAIN PARENCHYMA AND CSF SPACES: Mild leukoaraiosis and diffuse cortical atrophy. Mild atheromatous d isease. No midline shift, mass effect or hemorrhage. The brain parenchyma and CSF spaces are otherwi se normal. VISUALIZED PARANASAL SINUSES: Well aerated. MASTOIDS: Well aerated. BONES: The bones appear intact. SOFT TISSUES: Visualized nasopharynx is normal. Superficial soft tissues are normal. IMPRESSION: No acute intracranial findings. Reviewed, dictated and finalized at location A.
--- OUTSIDE RECORDS SUMMARY | 2024-11-27 19:32 | XMS_ITS | Clinical Summary ---
Author Organization [facility] Address [facility] [place] [address] Care Team Providers Care Enginehouse Brakeman Name Role Phone Robert Hardy MD Primary Care Provider + [phone] Allergies No known active allergies Medications escitalopram (LEXAPRO) 20 MG tablet Take 1 tablet (20 mg total) by mouth daily. 01/09/20 23 Active LORazepam (ATIVAN) 0.5 MG tablet Take 1 tablet (0.5 mg total) by mouth every 6 (six) hours as needed. Active latanoprost (XALATAN) 0.005 % ophthalmic solution Place 1 drop into both eyes nightly at bedtime. 01/12/20 23 Active pantoprazole EC (PROTONIX) 40 MG tablet take 1 tablet by mouth every morning 90 tablet 06/14/19 24 Active OLANZapine (ZYPREXA) 15 MG tablet Take 1 tablet (15 mg total) by mouth nightly at bedtime. at bedtime. 08/08/19 24 Active aspirin 81 MG chewable tablet Chew 1 tablet (81 mg total) by mouth daily. Active ferrous sulfate EC 325 (65 Fe) MG tablet take 1 tablet by mouth every day 30 tablet 4 01/06/20 24 Active isosorbide mononitrate ER (IMDUR) 30 MG 24 hr tablet Take 1 tablet (30 mg total) by mouth daily. 90 tablet 1 07/16/19 25 Active clopidogrel (PLAVIX) 75 MG tablet Take 1 tablet by mouth once daily 90 tablet 10/10/19 25 Active metoprolol succinate ER (TOPROL-XL) 25 MG 24 hr tablet Take 1 tablet (25 mg total) by mouth daily. CALL FOR AN APPOINTMENT 30 tablet 11/22/19 25 Active atorvastatin (LIPITOR) 40 MG tablet CALL FOR AN APPOINTMENT 30 tablet 11/22/19 25 Active atorvastatin (LIPITOR) 40 MG tablet TAKE 1 TABLET BY MOUTH ONCE DAILY AT NIGHT 90 tablet 08/28/19 25 025 Discontinued metoprolol succinate ER (TOPROL-XL) 25 MG 24 hr tablet Take 1 tablet by mouth once daily 90 tablet 08/28/19 25 025 Discontinued Active Problems Problem Noted Date Diagnosed Date SVT (supraventricular tachycardia) ([facility]) Dyslipidemia 08/16/2023 Coronary artery disease invo lving coronary bypass graft of [place] heart without angina pectoris 02/16/2023 Lightheadedness 02/16/2023 NSTEMI (non-ST elevated myoc ardial infarction) ([facility]) 06/13/2018 Overview (11/28/2023): Last Assessment & Plan: NSTEMI earlier this month. Now s/p CABG x4. Hypertension 06/13/2018 Overview (11/28/2023): Last Assessment & Plan: q 4 hour VS BP currently low- will monitor Consider addition of BB when tolerates Family History Medical History Relation Comments Stroke Maternal Grandmother Stroke Paternal Grandmother Relation Status Comments Brother Father Maternal Grandfather Maternal Grandmother Mother Paternal Grandfather Paternal Grandmother Social History Tobacco Use Types Packs/Day Years Used Date Smoking Tobacco: Former Cigarettes Tobacco Cessation:Counseling Given: Not Answered Alcohol Use Standard Drinks/Week Comments Not Currently 0 (1 standard drink = 0.6 oz pur e alcohol) Sex and Gender Information Value Date Recorded Sex Assigned at Not on file Legal Sex Male 8:32 PM CDT Gender Identity Not on file Sexual Orientation Not on file Occupation Industry Job Start Date Job End Date retired Not on file Not on file Not on file Last Filed Vital Signs Vital Sign Reading Time Taken Comments Blood Pressure 134/90 11/28/2023 9:11 AM CDT Pulse 86 11/28/2023 9:11 AM CDT Temperature 36.8 C (98.2 F) 10/18/2023 11:38 AM CDT Respiratory Rate 12 10/18/2023 6:00 PM CDT Oxygen Saturation 96% 11/28/2023 9:11 AM CDT Inhaled Oxygen Concentration - - Weight 85.7 kg (189 lb) 11/28/2023 9:11 AM CDT Height 172.7 cm (5' 8) 11/28/2023 9:11 AM CDT Body Mass Index 28.74 11/28/2023 9:11 AM CDT Plan of Treatment Upcoming Encounters Date Type Department Care Team (Late st Contact Info) Description 02/05/2025 1:30 PM CDT Office Visit [facility], [address] [place], [place] [id number] Varun Maldonado MD [facility]. [address] [place], [place] [id number] Health Maintenance Due Date Last Done Comments Colorectal Cancer Screening Colonoscopy (10 Years) 1950 Hepatitis C 1969 Pneumococcal Vaccine: 50+ Years (1 of 2 - PCV) 1970 Zoster Vaccines (1 of 2) 2001 DTaP, Tdap and Td Vaccines ( 1 - Tdap) 05/31/2002 05/30/2002 RSV Immunization or 60+ Years (1 - Risk 60-74 years 1-dose series) 2011 Annual Medicare Wellness Visit 2016 COVID-19 Vaccine (4 - 2023-2 5 season) 2024 02/16/2022, 04/01/2021, 08/04/2020 AAA SCREENING Completed 06/13/2018 Meningococcal B Vaccine Aged Out No l onger eligible based on patient's age to complete this topic Meningococcal Vaccine Aged Out No angelina jessica eligible based on patient's age to complete this topic RSV Immunizations Under 20 Months Aged Out No longer eligible b ased on patient's age to complete this topic Insurance [employer]ET[employer] Care Teams Enginehouse Brakeman Relationship Specialty Start Date End Date Robert Hardy MD [address] [place] [address] PCP - General INTERNAL MEDICINE 12/08/22
--- OUTSIDE RECORDS SUMMARY | 2024-11-27 19:32 | XMS_ITS | Encounter Summary ---
Author Organization [facility] Address [address] [place] [id number] Care Team Providers Care Bicycle Assembler Name Role Phone Robert Hardy MD Primary Care Provider + [phone] Encounter Details Date Type Department Care Team (Late st Contact Info) Description 02/25/2023 Abstract [facility] [facility] [address] [place], [place] [phone] Oscar Connor MA Social History Tobacco Use Types Packs/Day Years Used Date Smoking Tobacco: Former Cigarettes Alcohol Use Standard Drinks/Week Comments Not Currently [...] file Not on file Not on file documented as of this encounter Plan of Treatment Upcoming Encounters Date Type Department Care Team (Late st Contact Info) Description 02/05/2025 1:30 PM CDT Office Visit [facility], [place] [place] [address] Varun Maldonado MD [facility]. [facility] [address] [place], [place] [phone] documented as of this encounter Procedures Procedure Name Priority Date/Time Associated Diagnosis Comments COMPREHENSIVE METABOLIC PANEL Routine 02/27/2024 LIPID PANEL Routine 02/27/2024 CBC, MANUAL DIFF Routine 02/27/2024 PROTIME (OUTSIDE LAB) Routine 09/30/2023 CBC (OUTSIDE LAB) Routine 09/30/2023 BASIC METABOLIC PANEL Routine 09/30/2023 LIPID PANEL Routine 09/30/2023 COMPREHENSIVE METABOLIC PANEL Routine 09/15/2022 LIPID PANEL Routine 09/15/2022 VITAMIN D, 25 OH Routine 09/15/2022 documented in this encounter Results * COMPREHENSIVE METABOLIC PANEL (02/27/2024) Pathologist [facility] SODIUM S/P/B 142 GLUCOSE 88 mg/dL AST 15 BUN 10 CREATININE S/P/B 1.13 0.7 - 1.3 CALCIUM S/P/B 8.7 POTASSIUM S/P/B 4.1 CHLORIDE S/P/B 106 ALT 15 GFR ESTIMATE 69 Default History Genericprovider LABORATORY Final Result * LIPID PANEL (02/27/2024) Pathologist [facility] CHOLESTEROL 93 HDL 37 LDL (CALCULATED) 43 NON HDL CHOLESTEROL 56 Default History Genericprovider LABORATORY Final Result * CBC, MANUAL DIFF (02/27/2024) Pathologist [facility] WBC 4.7 HGB 13.6 HCT 44.0 PLT 203 Default History Genericprovider LABORATORY Final Result * CBC (OUTSIDE LAB) (09/30/2023) [facility] WBC 4.7 HGB 11.1 HCT 35.7 PLT 220 09/30/2023 Default History Genericprovider LAB-OUTSIDE/ABST RACTED Final Result * LIPID PANEL (09/30/2023) Pathologist [facility] CHOLESTEROL 85 HDL 30 TRIGLYCERIDES 79 NON HDL CHOLESTEROL 55 LDL (CALCULATED) 39 09/30/2023 Default History Genericprovider LABORATORY Edited Result - Final * BASIC METABOLIC PANEL (09/30/2023) SODIUM S/P/B 142 POTASSIUM S/P/B 3.9 CO2 26 CHLORIDE S/P/B 110 GLUCOSE 101 mg/dL CALCIUM S/P/B 8.7 BUN 9 CREATININE S/P/B 1.17 0.7 - 1.3 EGFR NON-AFR. AMER. 66 <=90 09/30/2023 [facility] Genericprovider LABORATORY Edited Result - Final * PROTIME (OUTSIDE LAB) (09/30/2023) Pathologist [facility] PROTIME 11.4 INR 1.1 09/30/2023 [facility] Genericprovider LAB-OUTSIDE/ABST RACTED Edited Result - Final * VITAMIN D, 25 OH (09/15/2022) Pathologist [facility] VITAMIN D 25 HYDROXY S/P/B 40 09/15/2022 [facility] History Genericprovider LABORATORY Final Result * COMPREHENSIVE METABOLIC PANEL (09/15/2022) Pathologist [facility] SODIUM S/P/B 142 GLUCOSE 94 mg/dL AST 12 BUN 13 CREATININE S/P/B 1.20 0.7 - 1.3 POTASSIUM S/P/B 4.3 CHLORIDE S/P/B 107 ALT 14 GFR ESTIMATE 65 Narrative Resulting Agency Comment Default History Genericprovider LABORATORY Final Result * LIPID PANEL (09/15/2022) Pathologist [facility] CHOLESTEROL 96 TRIGLYCERIDES 64 HDL 37 LDL (CALCULATED) 45 NON HDL CHOLESTEROL 59 Narrative Resulting Agency Comment us Default History Genericprovider LABORATORY Final Result documented in this encounter Visit Diagnoses Not on filedocumented in this encounter Care Teams Bicycle Assembler Relationship Specialty Start Date End Date Robert Hardy MD [address] [place] [address] PCP - General INTERNAL MEDICINE 12/08/22 documented as of this encounter
--- NOTE | 2024-11-27 20:04 | ECG_ITS ---
Test Date: 2024-11-27 20:08:54 Measurements Intervals Cunningham Rate: 86 P: 62 CT: 179 QRS: -46 QRSD: 102 T: 78 QT: 330 QTc: 395 Interpretive Statements SINUS RHYTHM INCOMPLETE RIGHT BUNDLE BRANCH BLOCK [90+ ms QRS DURATION, TERMINAL R IN V1/V2, 40+ ms S IN I/aVL/V4/V5/V6] LEFT ANTERIOR FASCICULAR BLOCK [QRS AXIS <= -45, QR IN I, RS IN II] NONSPECIFIC T-WAVE ABNORMALITY ABNORMAL ECG No previous ECG available for comparison Electronically Signed On 11-28-2024 12:42:04 CDT by Robert Vance M.D.
[2024-11-27 20:22] VITALS: BP 109/77; PULSE 94; RESP 16; TEMP 36.4; O2SAT 100
[2024-11-27 20:50] VITALS: BP 109/76; PULSE 72; PULSE 74; RESP 19; O2SAT 96
[2024-11-27 21:04] LABS: Hematocrit 41.5 % (42.0-52.0); Hemoglobin 12.6 g/dL (14.0-18.0); Immature Granulocyte Percent A 0.6 % (0-0.5); Lymphocytes Absolute Auto 0.47 K/mm3 (0.9-3.2); Mean Corpuscular HGB Conc 30.4 g/dl (32-36); Mean Corpuscular Hemoglobin 28.1 pg (26-34); Mean Corpuscular Volume 92.4 fl (80-100); Nucleated Red Blood Cells Absolute Auto 0.000 K/mm3 (0.0-0.012); Nucleated Red Blood Cells Perc 0.0 % (0.0-0.2); Platelet Count Result 257 k/mm3 (150-375); Red Blood Count 4.49 M/mm3 (4.6-6.20); White Blood Count 5.2 K/mm3 (4.5-10.0)
--- NOTE | 2024-11-27 21:05 | ED.DIZZY ---
HPI - Dizziness General Chief Complaint: Dizziness <Yvonne English PA-C - Last Filed: 11/28/24 02:36> Stated Complaint: dizziness/sob <KAYY Paz Last Filed: 11/28/24 02:36> Time Seen by Provider: 11/27/24 20:50 <Yvonne English PA-C - Last Filed: 11/28/24 02:36> Source: patient <KAYY Paz Last Filed: 11/28/24 02:36> Mode of arrival: wheelchair <KAYY Paz Last Filed: 11/28/24 02:36> Limitations: dementia <KAYY Paz Last Filed: 11/28/24 02:36> History of Present Illness HPI Narrative: This is a 74 year old male that presents to the ER for dizziness. Ongoing over the last couple of days. Patient reports he feels off balance. 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 He reports pain from his right shoulder to his left hip. He recently finished antibiotics for colitis. He has not been eating or drinking much the last couple of days. <KAYY Paz Last Filed: 11/28/24 02:36> Related Data Home Medications: Home Medications ?Medication ?Instructions ?Recorded ?Confirmed ?Last Taken ?Type aspirin 81 mg tablet,delayed 81 mg PO DAILY 05/25/19 11/28/24 08/13/23 History release atorvastatin 40 mg tablet 40 mg PO DAILY 05/25/19 11/28/24 08/13/23 History metoprolol succinate 25 mg 25 mg PO DAILY 05/25/19 11/28/24 08/13/23 History tablet,extended release 24 hr timolol 0.25 % eye drops (Betimol) See Rx Instructions .Route .COMPLEX 05/25/19 11/28/24 08/13/23 History <KAYY Paz Last Filed: 11/28/24 02:36> Allergies/Adverse Reactions: Allergies Allergy/AdvReac Type Severity Reaction Status Date / Time No Known Allergies Allergy Verified 11/27/24 19:31 <Yvonne English PA-C - Last Filed: 11/28/24 02:36> Review of Systems Review of Systems: All systems reviewed & are unremarkable except as noted in HPI and below <Yvonne English PA-C - Last Filed: 11/28/24 02:36> PMFSH Past Medical History Medical History: Medical History Aneurysm of inferior mesenteric artery Dizziness Generalized weakness Abnormal CT scan, gastrointestinal tract Rash and nonspecific skin eruption URI with cough and congestion Sinus congestion Excessive ear wax Insomnia Fatigue Vitamin D deficiency Rash of hands Mixed hyperlipidemia Gastroesophageal reflux disease without esophagitis Cardiac arrhythmia Candidal dermatitis ASHD (arteriosclerotic heart disease) Colonic varices Colon cancer screening Depression HLD (hyperlipidemia) <Yvonne English PA-C - Last Filed: 11/28/24 02:36> Social History Social History: Social History Smoking status: Former smoker Tobacco type: cigarettes Smoking end date: 05/30/91 Alcohol intake: never Substance use: never Substance use type: does not use Do You Feel Safe in your Home?: Yes Lack of Transportation: No Lack of Food: Never True Current Housing: I Have Housing Concerned About Future Housing: No Difficulty Paying Gas/Electric Bills: No Difficulty Paying for Meds: No Currently Unemployed: No Education: High School Diploma/GED Difficulty w/ Childcare or Family Care: No Living arrangements: with family Spiritual care concerns: No <Yvonne English PA-C - Last Filed: 11/28/24 02:36> Exam Narrative: GENERAL: Elderly, well-nourished, and in no acute distress. HEAD: Normocephalic, atraumatic. EYES: PERRLA and EOMI. ENT: Nares clear, no rhinorrhea or epistaxis. Mucous membranes moist. Oropharynx without tonsillar hypertrophy exudate or other lesions. Bilateral TMs pearly beltran non-bulging NECK: Supple. No adenopathy or masses. CHEST: Clear to auscultation. No respiratory distress. No wheezes rales or rhonchi HEART: Regular rate and rhythm. No murmur heard. Normal peripheral pulses. ABDOMEN: Soft, nontender, nondistended, normal active bowel sounds. EXTREMITIES: Normal range of motion. No edema. Strength equal in bilateral upper and lower extremities (4/5) SKIN: Warm, dry, no rash. NEURO: No focal deficits. Alert and oriented x3. CN II-XII grossly intact. Difficulty with finger to nose on the right PSYCH: Normal mood and affect <Yvonne English PA-C - Last Filed: 11/28/24 02:36> Course Course Emergency Course: Patient and family updated on workup and recommendation for admission <Yvonne English PA-C - Last Filed: 11/28/24 02:36> PROCESSING MANAGER/PA Physician Supervision PA did tell me about this patient's presentation and later that they were being admitted. I was available for consultation while patient was in the emergency department but otherwise did not personally evaluate them and was not directly involved in their care. <Fabiola Swann MD - Last Filed: 11/28/24 17:48> Consultations Consultation #1: Spoke with vascular surgery with [facility], Dr. Child, patient may follow up outpatient for vascular findings on imaging. <Yvonne English PA-C - Last Filed: 11/28/24 02:36> Date: 11/28/24 <Yvonne English PA-C - Last Filed: 11/28/24 02:36> Consultation #2: Spoke with hospitalist about patient and workup who accepts admission <Yvonne English PA-C - Last Filed: 11/28/24 02:36> Date: 11/27/24 <Yvonne English PA-C - Last Filed: 11/28/24 02:36> Vital Signs Vital signs: Vital Signs Temperature 97.5 F L 11/27/24 20:22 Pulse Rate 94 11/27/24 20:22 Respiratory Rate 16 11/27/24 20:22 Blood Pressure 109/77 11/27/24 20:22 Pulse Oximetry 100 11/27/24 20:22 Oxygen Delivery Room Air 11/27/24 20:22 Temperature 97.4 F L 11/28/24 13:48 Pulse Rate 65 11/28/24 13:48 Respiratory Rate 16 11/28/24 13:48 Blood Pressure 109/70 11/28/24 13:48 Pulse Oximetry 98 11/28/24 13:48 Oxygen Delivery Room Air 11/28/24 08:00 <Yvonne English PA-C - Last Filed: 11/28/24 02:36> Vital Signs Temperature 97.5 F L 11/27/24 20:22 Pulse Rate 94 11/27/24 20:22 Respiratory Rate 16 11/27/24 20:22 Blood Pressure 109/77 11/27/24 20:22 Pulse Oximetry 100 11/27/24 20:22 Oxygen Delivery Room Air 11/27/24 20:22 Temperature 97.4 F L 11/28/24 13:48 Pulse Rate 65 11/28/24 13:48 Respiratory Rate 16 11/28/24 13:48 Blood Pressure 109/70 11/28/24 13:48 Pulse Oximetry 98 11/28/24 13:48 Oxygen Delivery Room Air 11/28/24 08:00 <Fabiola Swann MD - Last Filed: 11/28/24 17:48> MDM - Dizziness MDM Narrative Medical decision making narrative: Patient presents to the emergency department for dizziness, gait instability, abdominal discomfort, generalized weakness, shoulder pain. Patient is afebrile and nontoxic appearing. His vitals are stable. Cranial nerves are intact, equal strength, he does have difficulty with finger to nose on the right. Cbc without leukocytosis. Shows normocytic anemia hemoglobin of 12.6. Metabolic panel with mild hypokalemia. Magnesium is normal. Urine without evidence of infection. CT brain without acute findings. CTA chest/abdomen/pelvis obtained for further evaluation. 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 No PE or aortic dissection. Continued findings of colitis. Possible mass in the head of the pancreas. Dilatation of the branches of the inferior mesenteric artery. Spoke with vascular surgery with [facility], Dr. Child, patient may follow up outpatient for vascular findings on imaging. Spoke with hospitalist about patient and workup who accepts admission <Yvonne English PA-C - Last Filed: 11/28/24 02:36> Differential Diagnosis Differential diagnosis: Likely adverse reaction to drug, benign paroxysmal positional vertigo, orthostatic hypotension, vertebral basilar insufficiency, cerebrovascular accident, transient cerebral ischemia and other <Yvonne English PA-C - Last Filed: 11/28/24 02:36> Lab Data Attestation: I reviewed the patient's lab results. <Yvonne English PA-C - Last Filed: 11/28/24 02:36> Result diagrams: 11/27/24 20:59 11/27/24 20:59 <Yvonne English PA-C - Last Filed: 11/28/24 02:36> Labs: Lab Results 11/27/24 11/27/24 11/27/24 Range/Units 20:59 23:29 23:32 WBC 5.2 (4.5-10.0) K/mm3 RBC 4.49 L (4.6-6.20) M/mm3 Hgb 12.6 L (14.0-18.0) g/dL Hct 41.5 L (42.0-52.0) % MCV 92.4 (80-100) fl MCH 28.1 (26-34) pg MCHC 30.4 L (32-36) g/dl RDW 14.6 H (11.5-14.5) % Plt Count 257 (150-375) k/mm3 MPV 9.1 (7.4-10.4) fl Immature Gran % (Auto) 0.6 H (0-0.5) % Neut % (Auto) 81.9 H (45.5-73.1) % Lymph % (Auto) 9.0 L (18.3-44.2) % Sunflower % (Auto) 7.3 (2.6-8.5) % Eos % (Auto) 0.8 (0-4.4) % Baso % (Auto) 0.4 (0.2-1.2) % Lymph # (Auto) 0.47 L (0.9-3.2) K/mm3 Sunflower # (Auto) 0.4 (0.1-0.6) K/mm3 Eos # (Auto) 0.0 (0-0.3) K/mm3 Baso # (Auto) 0.0 (0.0-0.1) K/mm3 Abs Immat Gran (auto) 0.03 (0.00-0.031) K/mm3 Absolute Neuts (auto) 4.3 (1.3-6.7) K/mm3 Absolute Nucleated RBC 0.000 (0.0-0.012) K/mm3 Nucleated RBC % 0.0 (0.0-0.2) % PT 16.5 H (11.1-14.7) Seconds INR 1.3 APTT 28.3 (22.3-36.8) Seconds Sodium 139 (137-145) mmol/L Potassium 3.3 L (3.4-5.0) mmol/L Chloride 105 (98-107) mmol/L Carbon Dioxide 22 (22-30) mmol/L Anion Gap 12 (4-12) mmol/L BUN 9 (9-20) mg/dL Creatinine 1.06 (0.7-1.3) mg/dL Estim Creat Clear Calc 53 ml/min Estimated GFR > 60 (59 - ) Glucose 124 H (65-110) mg/dL Lactic Acid 1.9 (0.7-2.0) mmol/L Calcium 8.8 (8.4-10.2) mg/dL Magnesium 2.0 (1.6-2.3) mg/dL Total Bilirubin 0.5 (0.2-1.3) mg/dL AST 47 (17-59) U/L ALT 26 (6-50) U/L Alkaline Phosphatase 101 (38-126) U/L Total Creatine Kinase 172 H (55-170) U/L Troponin I 0.012 (0.000-0.034) ng/mL C-Reactive Protein 1.1 (<1.0) mg/dL Total Protein 7.2 (6.3-8.2) g/dL Albumin 3.5 (3.5-5.1) g/dL Urine Color Yellow (Yellow) Urine Appearance Clear (Clear) Urine pH 6.5 (5.0-9.0) Ur Specific [place] > 1.045 H (1.001-1.035) Urine Protein Negative (Negative) mg/dL Urine Glucose (UA) Negative (Negative) mg/dL Urine Ketones Negative (Negative) mg/dL Ur Blood (Man) Negative (Negative) Urine Nitrate Negative (Negative) Urine Bilirubin Negative (Negative) Urine Urobilinogen 0.2 (<2.0) mg/dL Leukocyte Esterase Rfl Negative (Negative) JA/UL <Yvonne English PA-C - Last Filed: 11/28/24 02:36> Lab Results 11/27/24 11/27/24 11/27/24 Range/Units 20:59 23:29 23:32 WBC 5.2 (4.5-10.0) K/mm3 RBC 4.49 L (4.6-6.20) M/mm3 Hgb 12.6 L (14.0-18.0) g/dL Hct 41.5 L (42.0-52.0) % MCV 92.4 (80-100) fl MCH 28.1 (26-34) pg MCHC 30.4 L (32-36) g/dl RDW 14.6 H (11.5-14.5) % Plt Count 257 (150-375) k/mm3 MPV 9.1 (7.4-10.4) fl Immature Gran % (Auto) 0.6 H (0-0.5) % Neut % (Auto) 81.9 H (45.5-73.1) % Lymph % (Auto) 9.0 L (18.3-44.2) % Sunflower % (Auto) 7.3 (2.6-8.5) % Eos % (Auto) 0.8 (0-4.4) % Baso % (Auto) 0.4 (0.2-1.2) % Lymph # (Auto) 0.47 L (0.9-3.2) K/mm3 Sunflower # (Auto) 0.4 (0.1-0.6) K/mm3 Eos # (Auto) 0.0 (0-0.3) K/mm3 Baso # (Auto) 0.0 (0.0-0.1) K/mm3 Abs Immat Gran (auto) 0.03 (0.00-0.031) K/mm3 Absolute Neuts (auto) 4.3 (1.3-6.7) K/mm3 Absolute Nucleated RBC 0.000 (0.0-0.012) K/mm3 Nucleated RBC % 0.0 (0.0-0.2) % PT 16.5 H (11.1-14.7) Seconds INR 1.3 APTT 28.3 (22.3-36.8) Seconds Sodium 139 (137-145) mmol/L Potassium 3.3 L (3.4-5.0) mmol/L Chloride 105 (98-107) mmol/L Carbon Dioxide 22 (22-30) mmol/L Anion Gap 12 (4-12) mmol/L BUN 9 (9-20) mg/dL Creatinine 1.06 (0.7-1.3) mg/dL Estim Creat Clear Calc 53 ml/min Estimated GFR > 60 (59 - ) Glucose 124 H (65-110) mg/dL Lactic Acid 1.9 (0.7-2.0) mmol/L Calcium 8.8 (8.4-10.2) mg/dL Magnesium 2.0 (1.6-2.3) mg/dL Total Bilirubin 0.5 (0.2-1.3) mg/dL AST 47 (17-59) U/L ALT 26 (6-50) U/L Alkaline Phosphatase 101 (38-126) U/L Total Creatine Kinase 172 H (55-170) U/L Troponin I 0.012 (0.000-0.034) ng/mL C-Reactive Protein 1.1 (<1.0) mg/dL Total Protein 7.2 (6.3-8.2) g/dL Albumin 3.5 (3.5-5.1) g/dL Urine Color Yellow (Yellow) Urine Appearance Clear (Clear) Urine pH 6.5 (5.0-9.0) Ur Specific [place] > 1.045 H (1.001-1.035) Urine Protein Negative (Negative) mg/dL Urine Glucose (UA) Negative (Negative) mg/dL Urine Ketones Negative (Negative) mg/dL Ur Blood (Man) Negative (Negative) Urine Nitrate Negative (Negative) Urine Bilirubin Negative (Negative) Urine Urobilinogen 0.2 (<2.0) mg/dL Leukocyte Esterase Rfl Negative (Negative) JA/UL <Fabiola Swann MD - Last Filed: 11/28/24 17:48> Imaging Data Radiologist's impression: ITS Impressions Chest X-Ray 11/27/24 21:36 IMPRESSION: No acute cardiopulmonary pathology. Head CT 11/27/24 21:56 IMPRESSION: No acute intracranial findings. Chest/Abdomen/Pelvis CTA 11/27/24 22:17 IMPRESSION: CHEST: 1. 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 2. No pulmonary embolism. No aortic dissection or aneurysm. 3. No acute cardiopulmonary pathology. ABDOMEN/PELVIS: 1. Fat stranding, thickening of the wall and prominent vessels around the sigmoid and descending colon. Differential include inflammatory versus infectious colitis. Ischemic bowel disease and mesenteritis are less likely. Clinical correlation and follow-up advised. 2. 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 3. Possible thickening in the wall of the cecum. Colonoscopy advised. 4. 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 5. Highly suggestive mass in the head of the pancreas. MRI evaluation advised. Yvonne English PA-C was notified with the result of the patient at 10:55 PM on November 27, 2024 <Yvonne English PA-C - Last Filed: 11/28/24 02:36> Critical Care Time Critical Care Time Critical Care Time: No <Yvonne English PA-C - Last Filed: 11/28/24 02:36> Discharge Plan Discharge Clinical Impression: Colitis, Dizziness, Ataxia, Pseudoaneurysm of subclavian artery, Pancreatic mass <Yvonne English PA-C - Last Filed: 11/28/24 02:36> Patient Disposition: Still a Patient <KAYY Paz Last Filed: 11/28/24 02:36> Condition: Stable <Yvonne English PA-C - Last Filed: 11/28/24 02:36>
[2024-11-27 21:14] LABS: Alanine Aminotransferase 26 U/L (6-50); Albumin Level 3.5 g/dL (3.5-5.1); Alkaline Phosphatase 101 U/L (38-126); Anion Gap 12 mmol/L (4-12); Aspartate Amino Transferase 47 U/L (17-59); Bilirubin,Total 0.5 mg/dL (0.2-1.3); Blood Urea Nitrogen 9 mg/dL (9-20); Calcium 8.8 mg/dL (8.4-10.2); Carbon Dioxide 22 mmol/L (22-30); Chloride 105 mmol/L (98-107); Creatine Kinase 172 U/L (55-170); Estimated CRCL calculation 53 ml/min; Estimated Glomerular Filt Rate > 60; Glucose 124 mg/dL (65-110); Potassium 3.3 mmol/L (3.4-5.0); Sodium 139 mmol/L (137-145); Total Protein 7.2 g/dL (6.3-8.2)
[2024-11-27 21:23] LABS: INR 1.3; Prothrombin Time 16.5 Seconds (11.1-14.7)
[2024-11-27 21:24] LABS: Partial Thromboplastin Time 28.3 Seconds (22.3-36.8)
[2024-11-27 21:29] LABS: Troponin I 0.012 ng/mL (0.000-0.034)
[2024-11-27 21:43] LABS: Magnesium 2.0 mg/dL (1.6-2.3)
[2024-11-27] MEDS: ONDANSETRON INJ 4 MG/2 ML VIAL IV PUSH (22:07)
[2024-11-27] MEDS: SODIUM CHLORIDE 0.9% IV 1,000 ML 999 ML IV CONT (22:07)
[2024-11-27 23:35] LABS: Add Urine Microscopic? NO; Appearance Urine Clear (Clear); Glucose Urine UA Negative (Negative); Leukocyte Esterase Ur Negative LEU/UL (Negative); Nitrate Urine Negative (Negative); Specific Grav Ur > 1.045 (1.001-1.035)
[2024-11-27 23:49] LABS: CRP 1.1 mg/dL (<1.0)
--- NOTE | 2024-11-28 01:22 | P.HP_ITS ---
H&P: HPI History of Present Illness Date/Time: 11/28/24 01:22 Chief Complaint: Dizziness Narrative: This is a very pleasant 74-year-old male patient with past medical history of vitamin-D deficiency, hyperlipidemia, Tony's esophagus, atherosclerotic heart disease, depression, hyperlipidemia who was a former smoker that quit in 1991 in who recently was treated as an outpatient for colitis with Cipro and Flagyl who comes to the emergency room today with complaints of having dizziness. Patient reports that since he has been treated for colitis he has had decreased intake, poor appetite and continues to have some abdominal discomfort on right side as well as loose stools without any melena or hematochezia. He was today moving some boxes around outside and became winded and felt clammy. He then switched activities and set on his lawnmower and noted that while sitting on his lawnmower he had left shoulder pain and right hip pain. This pain was only present while on the lawnmower. He felt as though he was shifting his weight to the right side. Patient's states that she when outside and noted that he was leaning to the right side as well. Patient denies any injury to the hip or the shoulder and states that discomfort is resolved. He denied any chest pain or dyspnea. Does note that his jeans are becoming very loose along with his loss of appetite and he is not sure however as he does not have a scale how much possible weight he may have lost. Upon arrival to the emergency room workup was performed. Patient noted to be having generalized weakness. His cranial nerves were noted to be intact and although there was concern for potential slurred speech his states that his speech to her was normal. ER provider moist to me that he did have some difficulty with moving finger to nose repeatedly on the right side but if this is a variant it is unknown when his last known well was. And night score of 1-2 at most. Vital signs are normal in ER. Normal sinus rhythm showing 86 beats per minute with an incomplete right bundle-branch block and left anterior fascicular block. CBC is unremarkable, metabolic panel remarkable only for mild decreased potassium at 3.3. Lactic acid normal at 1.9, magnesium normal at 2.0. LFTs and bilirubin are normal, normal CK, negative troponin, CRP is 1.1. Urinalysis without appearance of infection. Coags are normal. Chest x-ray was performed that does not show any acute cardiopulmonary abnormalities. CT of the head was performed and is negative for inter cranial abnormalities. CTA chest abdomen pelvis was performed and patient is without any findings of pulmonary embolism. There is however fat stranding, 6 sigmoid colon and descending colon that appears inflammatory versus infectious colitis. 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 The mass measures 1.5 x 3.1 cm. It is noted that this was not present on CT abdomen and pelvis with contrast performed November 14, 2024. Significance is unclear, however patient is going to be admitted in the setting recurrent colitis, dizziness, generalized weakness and abnormal CT scan. The emergency room provider did speak with Dr. Child vascular surgeon [facility] regarding the inferior mesenteric artery fusiform aneurysmal dilation and he advised he will follow-up with patient as outpatient. Review of Systems Review of Systems: All systems reviewed & are unremarkable except as noted in HPI and below [facility] Past Medical History Medical History (Updated 11/28/24 @ 01:57 by CHAYO Encinas) Aneurysm of inferior mesenteric artery Dizziness Generalized weakness Abnormal CT scan, gastrointestinal tract Rash and nonspecific skin eruption URI with cough and congestion Sinus congestion Excessive ear wax Insomnia Fatigue Vitamin D deficiency Rash of hands Mixed hyperlipidemia Gastroesophageal reflux disease without esophagitis Cardiac arrhythmia Candidal dermatitis ASHD (arteriosclerotic heart disease) Colonic varices Colon cancer screening Depression HLD (hyperlipidemia) Social History Social History Smoking status: Former smoker Tobacco type: cigarettes Smoking end date: 05/30/91 Alcohol intake: never Substance use: never Substance use type: does not use Do You Feel Safe in your Home?: Yes Lack of Transportation: No Lack of Food: Never True Current Housing: I Have Housing Concerned About Future Housing: No Difficulty Paying Gas/Electric Bills: No Difficulty Paying for Meds: No Currently Unemployed: No Education: Decline to Answer Difficulty w/ Childcare or Family Care: No Living arrangements: with family Spiritual care concerns: No Meds Home Medications and Allergies Home Medications ?Medication ?Instructions ?Recorded ?Confirmed ?Type aspirin 81 mg tablet,delayed 81 mg PO DAILY 05/25/19 11/14/24 History release atorvastatin 40 mg tablet 40 mg PO DAILY 05/25/19 11/14/24 History metoprolol succinate 25 mg 25 mg PO DAILY 05/25/19 11/14/24 History tablet,extended release 24 hr timolol 0.25 % eye drops (Betimol) See Rx Instructions .Route .COMPLEX 05/25/19 11/14/24 History lorazepam 0.5 mg tablet (Ativan) 0.5 mg PO BID PRN anxiety #30 tabs 04/03/24 11/14/24 Rx venlafaxine 150 mg 150 mg PO DAILY #90 caps 08/21/24 11/14/24 Rx capsule,extended release 24 hr pantoprazole 40 mg tablet,delayed See Rx Instructions .Route 08/27/24 11/14/24 Rx release .COMPLEX #90 tabs olanzapine 15 mg tablet See Rx Instructions .Route 10/23/24 11/14/24 Rx .COMPLEX #90 tabs ondansetron 4 mg disintegrating 4 mg PO Q8H PRN nausea and 10/27/24 11/14/24 Rx tablet vomiting #30 tabs donepezil 10 mg tablet See Rx Instructions .Route 11/21/24 Rx .COMPLEX #180 tabs Allergies Allergy/AdvReac Type Severity Reaction Status Date / Time No Known Allergies Allergy Verified 11/27/24 19:31 Vital Signs Vital Signs - 24 hr 11/27/24 20:22 11/27/24 20:50 11/27/24 20:50 Temperature 97.5 F L Pulse Rate 94 72 74 Respiratory Rate 16 19 Blood Pressure 109/77 109/76 Pulse Oximetry 100 96 Oxygen Delivery Room Air Exam Const: General: comfortable and no acute distress Other: Elderly male pt, appears generally weak and ill appearing. HENMT: Face/Nose/Sinus: Normal nares present Mouth: Yes dry mucous membranes Eyes: General: appearance normal, both eyes and all related structures Sclera: sclerae normal Pupils: Equal, round and reactive pupils present EOM: EOMs intact bilaterally Neck: Neck: supple and no JVD Lymphatic: lymphadenopathy not noted Resp: Effort & Inspection: normal respiratory effort Auscultation: clear to auscultation bilaterally Cardio: Rate: regular rate Rhythm: regular rhythm Heart sounds: no gallops, no murmurs and no rubs GI: Inspection: non-distended GI Palp: Yes Soft to palpation, Yes Tenderness to palpation present (GI) (RUQ) and No Guarding due to palpation present (GI) Auscultation: normal bowel sounds Other: Negative Steve's sign Skin: General skin exam: No normal color (Pallor), no rashes or lesions noted and no erythema Lesions: no lesions noted Rashes: no rashes noted Wounds: no wounds Neuro: Speech: normal speech (Normal for pt) Motor exam (neuro): strength not 5/5 throughout and Abnormal motor strength present (4/4 BUE, 4/4 BLE and equal.) Sensory Exam: normal sensation Other: No focal deficits noted. NIH: 1 Extrem: General: normal to inspection, no edema and no pedal edema Psych: Mental Status: mental status grossly normal H&P: Results Labs Labs: Short CBC 11/27/24 Range/Units 20:59 WBC 5.2 (4.5-10.0) K/mm3 Hgb 12.6 L (14.0-18.0) g/dL Hct 41.5 L (42.0-52.0) % Plt Count 257 (150-375) k/mm3 BMP 11/27/24 20:59 Sodium 139 Potassium 3.3 L Chloride 105 Carbon Dioxide 22 BUN 9 Creatinine 1.06 Glucose 124 H Calcium 8.8 Cardiac Enzymes 11/27/24 Range/Units 20:59 Total Creatine Kinase 172 H (55-170) U/L Troponin I 0.012 (0.000-0.034) ng/mL Liver Function 11/27/24 Range/Units 20:59 Total Bilirubin 0.5 (0.2-1.3) mg/dL AST 47 (17-59) U/L ALT 26 (6-50) U/L Alkaline Phosphatase 101 (38-126) U/L Albumin 3.5 (3.5-5.1) g/dL Urine 11/27/24 Range/Units 23:29 Urine Color Yellow (Yellow) Urine Appearance Clear (Clear) Urine pH 6.5 (5.0-9.0) Ur Specific [place] > 1.045 H (1.001-1.035) Urine Protein Negative (Negative) mg/dL Urine Glucose (UA) Negative (Negative) mg/dL Assessment and Plan Assessment and plan (1) Abnormal CT scan, gastrointestinal tract: Code(s): R93.3 - Abnormal findings on diagnostic imaging of other parts of digestive tract Status: Acute Assessment and Plan: * Findings not only concern for colitis as outlined in number to that also a thickened appearance of the wall of the cecum warranting colonoscopy for which GI will be consulted. 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 Child at [facility] and they will follow as outpatient. * Also findings that are highly suggestive of a mass on the head of the pancreas measuring 1.5 cm x 3.1 cm are identified. * MRI will be ordered to further evaluate potential mass on the head of the pancreas. (2) Colitis: Code(s): K52.9 - Noninfective gastroenteritis and colitis, unspecified Status: Acute Assessment and Plan: * Pt is not meeting sepsis criteria. * CT scan showing multiple abnormalities including fat stranding and thickening of the sigmoid and descending colon considering inflammatory versus infectious colitis, and was independently reviewed by this admitting provider. * Patient did just recently finished Cipro and Flagyl but is continuing to have symptoms. * Consult GI * Continue IV Zosyn that was started in the ER for continued colitis as evidenced by CT Scan pending GI evaluation. * Suspect patient will need colonoscopy. * Blood cultures have been obtained and are pending. (3) Generalized weakness: Code(s): R53.1 - Weakness Status: Acute Assessment and Plan: * Etiology likely multifactorial from recently having repeat colitis and being symptomatic with continued abdominal pain, diarrhea and poor appetite * Labs do not show an overt dehydration, or metabolic derangement. * There is potential for intra-abdominal findings as outlined above and numbers 1 and 2 causing patient's symptoms of generalized weakness. * As patient did have an NIH score of 1 for this provider accompanied by presenting symptoms of dizziness and weakness MRI of brain will be ordered. * CT Scan negative in ER and was independently viewed by this admitting provider. * Consult Neurology * Check TSH, vitamin B12 and vitamin-D levels * Monitor and trend daily labs and VS. (4) Dizziness: Code(s): R42 - Dizziness and giddiness Status: Acute Assessment and Plan: * See 3. (5) GERD (gastroesophageal reflux disease): Code(s): K21.9 - Gastro-esophageal reflux disease without esophagitis Status: Chronic Assessment and Plan: * Continue PPI therapy with Protonix 40 mg IV push daily. (6) Anxiety: Code(s): F41.9 - Anxiety disorder, unspecified Status: Chronic Assessment and Plan: * Continue home medications once they have been confirmed and verified. * In the meantime a p.r.n. dose of Ativan 0.5 mg IV push q.6 hours p.r.n. anxiety is ordered. (7) Aneurysm of inferior mesenteric artery: Code(s): I72.8 - Aneurysm of other specified arteries Status: Acute Assessment and Plan: * As noted per CT scan. This was independently reviewed by myself. * ER provider spoke with vascular specialist Dr. Child at [facility], and he will follow up with pt as outpt. Quality VTE Prophylaxis VTE prophylaxis: mechanical ordered Hospitalist MIPS Advance Care Plan I have confirmed that the patient's Advanced Care Plan is present, code status is documented, or surrogate decision maker is listed in patient medical record.: Yes Medication Reconciliation I have utilized all available resources to obtain, update and review the patients current medications (includes all prescriptions, OTC, herbals, cannabis , and nutritional supplements).: Yes
[2024-11-28] MEDS: PIPERACILLN/TAZ 3.375GM/NS50ML 3.375 GM/50 ML BAG IVPB ×4 (01:32→17:42)
[2024-11-28] MEDS: MECLIZINE HCL 25 MG TABLET PO (01:33)
[2024-11-28 01:39] VITALS: BP 133/86; PULSE 72; RESP 15; O2SAT 100
[2024-11-28 01:55] VITALS: BP 133/86; PULSE 72; RESP 15; O2SAT 100
[2024-11-28 02:00] VITALS: BMI 25.6
[2024-11-28] MEDS: SODIUM CHLORIDE 0.9% IV 1,000 ML 125 ML IV CONT ×3 (02:12→21:01)
--- NOTE | 2024-11-28 02:14 | ADMGEN ---
This patient, Howard Bateman, was admitted to [facility] S[facility] Room 327-01. Patient/family oriented to hospital policies and general routines including ID bracelet, bed and alarms, visiting hours, pain management, procedures, bathroom and other care routines, personal items, smoking policy, room service/diet, and visiting hours. Information on how to activate the Rapid Response Team has been discussed. Patient/Family are encouraged to report perceived risks to care and to ask questions if they do not understand what they are told or what they should do.
[2024-11-28 04:00] VITALS: BP 140/81; PULSE 60; RESP 18; TEMP 36.8; O2SAT 100
--- NOTE | 2024-11-28 07:27 | P.CONGI_ITS ---
Assessment and Plan Assessment and plan (1) Pancreatic mass: Code(s): K86.89 - Other specified diseases of pancreas Status: Acute Assessment and Plan: While the patient experienced an episode of presumptive colitis approximately two months ago, which resolved with antibiotic therapy, there is no current clinical or symptomatic evidence of active colitis, such as persistent diarrhea or abdominal pain/tenderness. 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 These chronic vascular changes may complicate interpretation of current CT findings. Of significant concern is the recent appearance of a pancreatic head mass (1.5 x 3.1 cm) on a follow-up CT, which was absent on previous recent imaging; this mass is a possible etiology for the portal vein thrombosis (hypercoagulable state). To further investigate, we agree with an MRI to better characterize the pancreatic mass. Additionally, a repeat Doppler sonogram will be important to assess the progression of the portal vein thrombosis and involvement of other vascular branches. A colonoscopy is not indicated at this time, as his most recent study was negative for malignant or premalignant conditions and active colitis (2) Portal vein thrombosis: Code(s): I81 - Portal vein thrombosis Status: Acute GI Consult Note Consult date/time: 11/28/24 07:27 Reason for consult: Mass in head of pancreas-colitis HPI: Howard Bateman, a 74-year-old male with a history of CAD (s/p CABG) and Tony's esophagus, was admitted last night due to dizziness and feeling off balance. His recent GI history includes an episode of diarrhea in late September, diagnosed as presumptive colitis or diverticulitis and treated with Augmentin. Since then, his bowel habits have been normal for the most part and isolated episodes of diarrhea. Critically, he has experienced no bowel movements for the past four days. The primary reason for current consultation stems from findings on a recent CT scan (obtained for a general check-up), which suggested possible colitis and, more significantly, revealed a new 1.5 x 3.1 cm mass in the head of the pancreas. This pancreatic mass was not present on a prior CT scan from November 14. In addition the CT scan describes dilatation of the branches of the inferior mesenteric vein. Additional Pertinent History from Chart Review: * Colonoscopy (July 2023): Demonstrated prominent veins in the descending colon, but no evidence of colitis, polyps, bleeding, or diverticula. * Abdominal Ultrasound (September 2024): Showed normal liver size and echotexture, c avernous transformation of the portal vein with hepatopedal flow, and numerous tortuous vessels. No focal hepatic lesions, perihepatic fluid collections, or intra/extrahepatic biliary dilation were identified. The common bile duct measured 3.1 mm, which is normal for his age. The gallbladder was surgically absent. Review of Systems 2 Review of Systems: All systems reviewed & are unremarkable except as noted in HPI and below [facility] Past Medical History Medical History (Updated 11/28/24 @ 08:54 by Drew Philip MD) Aneurysm of inferior mesenteric artery Dizziness Generalized weakness Abnormal CT scan, gastrointestinal tract Rash and nonspecific skin eruption URI with cough and congestion Sinus congestion Excessive ear wax Insomnia Fatigue Vitamin D deficiency Rash of hands Mixed hyperlipidemia Gastroesophageal reflux disease without esophagitis Cardiac arrhythmia Candidal dermatitis ASHD (arteriosclerotic heart disease) Colonic varices Colon cancer screening Depression HLD (hyperlipidemia) Social History Social History Smoking status: Former smoker Tobacco type: cigarettes Smoking end date: 05/30/91 Alcohol intake: never Substance use: never Substance use type: does not use Do You Feel Safe in your Home?: Yes Lack of Transportation: No Lack of Food: Never True Current Housing: I Have Housing Concerned About Future Housing: No Difficulty Paying Gas/Electric Bills: No Difficulty Paying for Meds: No Currently Unemployed: No Education: High School Diploma/GED Difficulty w/ Childcare or Family Care: No Living arrangements: with family Spiritual care concerns: No Meds Home Medications and Allergies Home Medications ?Medication ?Instructions ?Recorded ?Confirmed ?Type aspirin 81 mg tablet,delayed 81 mg PO DAILY 05/25/19 11/28/24 History release atorvastatin 40 mg tablet 40 mg PO DAILY 05/25/19 11/28/24 History metoprolol succinate 25 mg 25 mg PO DAILY 05/25/19 11/28/24 History tablet,extended release 24 hr timolol 0.25 % eye drops (Betimol) See Rx Instructions .Route .COMPLEX 05/25/19 11/28/24 History lorazepam 0.5 mg tablet (Ativan) 0.5 mg PO BID PRN anxiety #30 tabs 04/03/24 11/28/24 Rx venlafaxine 150 mg 150 mg PO DAILY #90 caps 08/21/24 11/28/24 Rx capsule,extended release 24 hr pantoprazole 40 mg tablet,delayed See Rx Instructions .Route 08/27/24 11/28/24 Rx release .COMPLEX #90 tabs olanzapine 15 mg tablet See Rx Instructions .Route 10/23/24 11/28/24 Rx .COMPLEX #90 tabs ondansetron 4 mg disintegrating 4 mg PO Q8H PRN nausea and 10/27/24 11/28/24 Rx tablet vomiting #30 tabs donepezil 10 mg tablet See Rx Instructions .Route 11/21/24 11/28/24 Rx .COMPLEX #180 tabs Allergies Allergy/AdvReac Type Severity Reaction Status Date / Time No Known Allergies Allergy Verified 11/27/24 19:31 Vital Signs Vital Signs - 24 hr 11/27/24 20:22 11/27/24 20:50 11/27/24 20:50 Temperature 97.5 F L Pulse Rate 94 72 74 Respiratory Rate 16 19 Blood Pressure 109/77 109/76 Pulse Oximetry 100 96 Oxygen Delivery Room Air 11/28/24 01:39 11/28/24 01:55 11/28/24 02:25 Temperature Pulse Rate 72 72 Respiratory Rate 15 15 Blood Pressure 133/86 133/86 Pulse Oximetry 100 100 Oxygen Delivery Room Air 11/28/24 04:00 Temperature 98.2 F Pulse Rate 60 Respiratory Rate 18 Blood Pressure 140/81 Pulse Oximetry 100 Oxygen Delivery Exam 2 Narrative: Abdomen : Soft, non tender, no rebound, no masses, no hepatomegaly, bowel sounds present. Rest of the exam, is unremarkable Results Labs 11/27/24 20:59 11/27/24 20:59 Labs: Short CBC 11/27/24 Range/Units 20:59 WBC 5.2 (4.5-10.0) K/mm3 Hgb 12.6 L (14.0-18.0) g/dL Hct 41.5 L (42.0-52.0) % Plt Count 257 (150-375) k/mm3 BMP 11/27/24 20:59 Sodium 139 Potassium 3.3 L Chloride 105 Carbon Dioxide 22 BUN 9 Creatinine 1.06 Glucose 124 H Calcium 8.8 Cardiac Enzymes 07/01/25 Range/Units 20:59 Total Creatine Kinase 172 H (55-170) U/L Troponin I 0.012 (0.000-0.034) ng/mL Liver Function 11/27/24 Range/Units 20:59 Total Bilirubin 0.5 (0.2-1.3) mg/dL AST 47 (17-59) U/L ALT 26 (6-50) U/L Alkaline Phosphatase 101 (38-126) U/L Albumin 3.5 (3.5-5.1) g/dL Urine 11/27/24 Range/Units 23:29 Urine Color Yellow (Yellow) Urine Appearance Clear (Clear) Urine pH 6.5 (5.0-9.0) Ur Specific [place] > 1.045 H (1.001-1.035) Urine Protein Negative (Negative) mg/dL Urine Glucose (UA) Negative (Negative) mg/dL
[2024-11-28 07:51] LABS: Vitamin B12 676.0 pg/mL (239-931)
[2024-11-28] MEDS: PANTOPRAZOLE SODIUM IV 40 MG VIAL IV PUSH (08:49)
--- NOTE | 2024-11-28 09:14 | P.PNIM_ITS ---
Progress Note: A&P Assessment and Plan (1) Abnormal CT scan, gastrointestinal tract: Code(s): R93.3 - Abnormal findings on diagnostic imaging of other parts of digestive tract Status: Acute Assessment and Plan: * Findings concern for colitis as outlined in number to that also a thickened appearance of the wall of the cecum warranting colonoscopy. GI team on board no indication for colonoscopy. 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 Child at [facility] and they will follow as outpatient. * Also findings that are highly suggestive of a mass on the head of the pancreas measuring 1.5 cm x 3.1 cm are identified. * MRI will be ordered to further evaluate potential mass on the head of the pancreas.Will get MRI (2) Colitis: Code(s): K52.9 - Noninfective gastroenteritis and colitis, unspecified Status: Acute Assessment and Plan: * Pt is not meeting sepsis criteria. * CT scan showing multiple abnormalities including fat stranding and thickening of the sigmoid and descending colon considering inflammatory versus infectious colitis, and was independently reviewed by this admitting provider. * Patient did just recently finished Cipro and Flagyl but is continuing to have symptoms. * Consult GI * Continue IV Zosyn that was started in the ER for continued colitis as evidenced by CT Scan pending GI evaluation.. * Blood cultures have been obtained and are pending. (3) Generalized weakness: Code(s): R53.1 - Weakness Status: Acute Assessment and Plan: * Etiology likely multifactorial from recently having repeat colitis and being symptomatic with continued abdominal pain, diarrhea and poor appetite * Labs do not show an overt dehydration, or metabolic derangement. * There is potential for intra-abdominal findings as outlined above and numbers 1 and 2 causing patient's symptoms of generalized weakness. * As patient did have an NIH score of 1 for this provider accompanied by presenting symptoms of dizziness and weakness MRI of brain will be ordered. * CT Scan negative in ER and was independently viewed by this admitting provider. * Neurology on board * MRI brain unremarkable/ plan for Neck MRI. NCV as outpatient * Monitor and trend daily labs and VS. (4) Dizziness: Code(s): R42 - Dizziness and giddiness Status: Acute Assessment and Plan: * See 3. (5) GERD (gastroesophageal reflux disease): Code(s): K21.9 - Gastro-esophageal reflux disease without esophagitis Status: Chronic Assessment and Plan: * Continue PPI therapy with Protonix 40 mg IV push daily. (6) Anxiety: Code(s): F41.9 - Anxiety disorder, unspecified Status: Chronic Assessment and Plan: * Continue home medications once they have been confirmed and verified. * In the meantime a p.r.n. dose of Ativan 0.5 mg IV push q.6 hours p.r.n. anxiety is ordered. (7) Aneurysm of inferior mesenteric artery: Code(s): I72.8 - Aneurysm of other specified arteries Status: Acute Assessment and Plan: * As noted per CT scan. This was independently reviewed by myself. * ER provider spoke with vascular specialist Dr. Child at [facility], and he will follow up with pt as outpt. Subjective Date/time seen: 11/28/24 09:14 Interval history: per HPI: This is a very pleasant 74-year-old male patient with past medical history of vitamin-D deficiency, hyperlipidemia, Tony's esophagus, atherosclerotic heart disease, depression, hyperlipidemia who was a former smoker that quit in 1991 in who recently was treated as an outpatient for colitis with Cipro and Flagyl who comes to the emergency room today with complaints of having dizziness. Patient reports that since he has been treated for colitis he has had decreased intake, poor appetite and continues to have some abdominal discomfort on right side as well as loose stools without any melena or hematochezia. He was today moving some boxes around outside and became winded and felt clammy. He then switched activities and set on his lawnmower and noted that while sitting on his lawnmower he had left shoulder pain and right hip pain. This pain was only present while on the lawnmower. He felt as though he was shifting his weight to the right side. Patient's states that she when outside and noted that he was leaning to the right side as well. Patient denies any injury to the hip or the shoulder and states that discomfort is resolved. He denied any chest pain or dyspnea. Does note that his jeans are becoming very loose along with his loss of appetite and he is not sure however as he does not have a scale how much possible weight he may have lost. Upon arrival to the emergency room workup was performed. Patient noted to be having generalized weakness. His cranial nerves were noted to be intact and although there was concern for potential slurred speech his states that his speech to her was normal. ER provider moist to me that he did have some difficulty with moving finger to nose repeatedly on the right side but if this is a variant it is unknown when his last known well was. And night score of 1-2 at most. Vital signs are normal in ER. Normal sinus rhythm showing 86 beats per minute with an incomplete right bundle-branch block and left anterior fascicular block. CBC is unremarkable, metabolic panel remarkable only for mild decreased potassium at 3.3. Lactic acid normal at 1.9, magnesium normal at 2.0. LFTs and bilirubin are normal, normal CK, negative troponin, CRP is 1.1. Urinalysis without appearance of infection. Coags are normal. Chest x-ray was performed that does not show any acute cardiopulmonary abnormalities. CT of the head was performed and is negative for inter cranial abnormalities. CTA chest abdomen pelvis was performed and patient is without any findings of pulmonary embolism. There is however fat stranding, 6 sigmoid colon and descending colon that appears inflammatory versus infectious colitis. 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 The mass measures 1.5 x 3.1 cm. It is noted that this was not present on CT abdomen and pelvis with contrast performed November 14, 2024. Significance is unclear, however patient is going to be admitted in the setting recurrent colitis, dizziness, generalized weakness and abnormal CT scan. The emergency room provider did speak with Dr. Child vascular surgeon [facility] regarding the inferior mesenteric artery fusiform aneurysmal dilation and he advised he will follow-up with patient as outpatient. 11/28/24 Patient was seen and examined at bedside. he is feeling fine. denies chest pain, SOb, abd pain is better. no N/V. has dizziness/weakness. neurology team on board.MRI brain neg. will get MRI neck. NCV as outpatient. GI team on board . plan for liver US and abd MRI to evaluate pancreas mass, Review of Systems Review of Systems: All systems reviewed & are unremarkable except as noted in HPI and below Exam Const: General: comfortable and no acute distress Other: Elderly male pt, appears generally weak and ill appearing. HENMT: Face/Nose/Sinus: Normal nares present Mouth: Yes dry mucous membranes Eyes: General: appearance normal, both eyes and all related structures Sclera: sclerae normal Pupils: Equal, round and reactive pupils present EOM: EOMs intact bilaterally Neck: Neck: supple and no JVD Lymphatic: lymphadenopathy not noted Resp: Effort & Inspection: normal respiratory effort Auscultation: clear to auscultation bilaterally Cardio: Rate: regular rate Rhythm: regular rhythm Heart sounds: no gallops, no murmurs and no rubs GI: Inspection: non-distended Auscultation: normal bowel sounds Other: Negative Steve's sign Skin: General skin exam: No normal color (Pallor), no rashes or lesions noted, no erythema, No lesion and No rashes Lesions: no lesions noted Rashes: no rashes noted Wounds: no wounds Neuro: Cranial nerves: Yes Equal, round and reactive pupils present Speech: normal speech (Normal for pt) Motor exam (neuro): strength not 5/5 throughout and Abnormal motor strength present (4/4 BUE, 4/4 BLE and equal.) Sensory Exam: normal sensation Other: No focal deficits noted. NIH: 1 Extrem: General: normal to inspection, no edema and no pedal edema Psych: Mental Status: mental status grossly normal Objective Data Vital Signs Vital Signs: Vital Signs - 24 hr 11/27/24 20:22 11/27/24 20:50 11/27/24 20:50 Temperature 97.5 F L Pulse Rate 94 72 74 Respiratory Rate 16 19 Blood Pressure 109/77 109/76 Pulse Oximetry 100 96 Oxygen Delivery Room Air 11/28/24 01:39 11/28/24 01:55 11/28/24 02:25 Temperature Pulse Rate 72 72 Respiratory Rate 15 15 Blood Pressure 133/86 133/86 Pulse Oximetry 100 100 Oxygen Delivery Room Air 11/28/24 04:00 11/28/24 08:00 Temperature 98.2 F Pulse Rate 60 Respiratory Rate 18 Blood Pressure 140/81 Pulse Oximetry 100 Oxygen Delivery Room Air Intake/Output Intake/Output: Intake & Output 11/25/24 11/26/24 11/27/24 11/28/24 23:59 23:59 23:59 23:59 Intake Total 1000 250 Output Total 225 Balance 1000 25 Meds/Results Medications: Active Medications Generic Name Dose Route Start Last Admin Trade Name Freq PRN Reason Stop Dose Admin Sodium Chloride 1,000 mls @ 125 mls/hr 11/28/24 00:35 11/28/24 02:12 Normal Saline Iv IV CONT 125 mls/hr .Q8H AVANI Administration Piperacillin/Tazobactam/Dextrose 3.375 gm in 50 mls @ 100 mls/hr 11/28/24 06:00 11/28/24 05:34 Zosyn 3.375 Gm/Ns 50 Ml IVPB Infused Q6HR AVANI Infusion Lorazepam 0.5 mg 11/28/24 01:53 Lorazepam Inj (*Crx) 2 Mg/Ml Vial IV PUSH Q6H PRN Anxiety Pantoprazole Sodium 40 mg 11/28/24 09:00 11/28/24 08:49 Pantoprazole Sodium Iv 40 Mg Vial IV PUSH 40 mg QAM AVANI Administration Radiology Results: ITS Impressions Chest X-Ray 11/27/24 21:36 IMPRESSION: No acute cardiopulmonary pathology. Head CT 11/27/24 21:56 IMPRESSION: No acute intracranial findings. Chest/Abdomen/Pelvis CTA 11/27/24 22:17 IMPRESSION: CHEST: 1. 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 2. No pulmonary embolism. No aortic dissection or aneurysm. 3. No acute cardiopulmonary pathology. ABDOMEN/PELVIS: 1. Fat stranding, thickening of the wall and prominent vessels around the sigmoid and descending colon. Differential include inflammatory versus infectious colitis. Ischemic bowel disease and mesenteritis are less likely. Clinical correlation and follow-up advised. 2. 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 3. Possible thickening in the wall of the cecum. Colonoscopy advised. 4. 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 5. Highly suggestive mass in the head of the pancreas. MRI evaluation advised. Yvonne English PA-C was notified with the result of the patient at 10:55 PM on November 27, 2024 Labs Labs: Laboratory Results - last 24 hr 11/27/24 11/27/24 11/27/24 20:59 23:29 23:32 WBC 5.2 RBC 4.49 L Hgb 12.6 L Hct 41.5 L MCV 92.4 MCH 28.1 MCHC 30.4 L RDW 14.6 H Plt Count 257 MPV 9.1 Immature Gran % (Auto) 0.6 H Neut % (Auto) 81.9 H Lymph % (Auto) 9.0 L [place] % (Auto) 7.3 Eos % (Auto) 0.8 Baso % (Auto) 0.4 Lymph # (Auto) 0.47 L [place] # (Auto) 0.4 Eos # (Auto) 0.0 Baso # (Auto) 0.0 Abs Immat Gran (auto) 0.03 Absolute Neuts (auto) 4.3 Absolute Nucleated RBC 0.000 Nucleated RBC % 0.0 PT 16.5 H INR 1.3 APTT 28.3 Sodium 139 Potassium 3.3 L Chloride 105 Carbon Dioxide 22 Anion Gap 12 BUN 9 Creatinine 1.06 Estim Creat Clear Calc 53 Estimated GFR > 60 Glucose 124 H Lactic Acid 1.9 Calcium 8.8 Magnesium 2.0 Total Bilirubin 0.5 AST 47 ALT 26 Alkaline Phosphatase 101 Total Creatine Kinase 172 H Troponin I 0.012 C-Reactive Protein 1.1 Total Protein 7.2 Albumin 3.5 Vitamin B12 Urine Color Yellow Urine Appearance Clear Urine pH 6.5 Ur Specific [place] > 1.045 H Urine Protein Negative Urine Glucose (UA) Negative Urine Ketones Negative Ur Blood (Man) Negative Urine Nitrate Negative Urine Bilirubin Negative Urine Urobilinogen 0.2 Leukocyte Esterase Rfl Negative 11/28/24 06:14 WBC RBC Hgb Hct MCV MCH MCHC RDW Plt Count MPV Immature Gran % (Auto) Neut % (Auto) Lymph % (Auto) [place] % (Auto) Eos % (Auto) Baso % (Auto) Lymph # (Auto) [place] # (Auto) Eos # (Auto) Baso # (Auto) Abs Immat Gran (auto) Absolute Neuts (auto) Absolute Nucleated RBC Nucleated RBC % PT INR APTT Sodium Potassium Chloride Carbon Dioxide Anion Gap BUN Creatinine Estim Creat Clear Calc Estimated GFR Glucose Lactic Acid Calcium Magnesium Total Bilirubin AST ALT Alkaline Phosphatase Total Creatine Kinase Troponin I C-Reactive Protein Total Protein Albumin Vitamin B12 676.0 Urine Color Urine Appearance Urine pH Ur Specific [place] Urine Protein Urine Glucose (UA) Urine Ketones Ur Blood (Man) Urine Nitrate Urine Bilirubin Urine Urobilinogen Leukocyte Esterase Rfl Quality VTE Prophylaxis VTE prophylaxis: mechanical ordered
--- NOTE | 2024-11-28 12:19 | P.CONNEU_ITS ---
Assessment and Plan Assessment and plan (1) Portal vein thrombosis: Code(s): I81 - Portal vein thrombosis Status: Acute (2) Pancreatic mass: Code(s): K86.89 - Other specified diseases of pancreas Status: Acute (3) Dizziness: Code(s): R42 - Dizziness and giddiness Status: Acute Plan 1. Dizziness with the possibility of the early neuropathy. MRI of the brain is normal with no evidence of posterior fossa lesion. Patient is being evaluated for the pancreatic mass. Will obtain the MRI of the cervical spine as well. He is receiving 81mg of aspirin daily with atorvastatin 40mg daily can be continued as such along with the donepezil 10mg daily as per his previous diagnosis. Nerve conduction studies can be scheduled as an outpatient but MRI can be done during this particular hospitalization of the cervical Spine. Consult date: 11/28/24 HPI: Howard Bateman is a 74 year old male Has been admitted to the hospital through the emergency room for complaints of dizziness of the last couple of days duration in addition to the complaints of being off the balance. He was reportedly riding the lawnmower this afternoon leaning to the right side and also was experiencing pain in his right shoulder and left hip. He has finished a course of antibiotics for colitis and has not been eating or drinking over the last couple of days. His home medications included aspirin 81mg daily, atorvastatin 40mg daily, metoprolol 25mg daily, and local timolol eyedrops. He is not allergic to any medications. He does have history of 1. Aneurysm of the inferior mesenteric artery 2. Cardiac arrhythmia 3. Hyperlipidemia 4. Depression 5. Being a former smoker 6. Never alcohol intake his initial exam in the emergency room documented nonfocal. vital signs were normal, CBC was normal BMP was normal except potassium 3.3 mast scanned negative, chest x-ray negative, CT of the head negative for the bleed, chest, abdomen, pelvis CTA documented dilatation of the branches of the inferior mesenteric artery with fusiform aneurysmal dilatation, highly suggestive mass in the head of the pancreas, gastroenterology consultation has been obtained for the pancreatic mass for reason GI evaluation is being carried out. Is a former smoker, never alcohol intake or, as mentioned above. Further review of the medication reveals he has been taking atorvastatin 40mg daily, venlafaxine 150mg daily, olanzapine 15mg daily, donepezil 10mg daily. MRI of the brain has already been done which is negative in addition to small foci of artifact bilateral cerebral hemisphere and could be suggestive of chronic microhemorrhages. Review of Systems 2 Review of Systems: All systems reviewed & are unremarkable except as noted in HPI and below PMFSH Past Medical History Medical History Aneurysm of inferior mesenteric artery Dizziness Generalized weakness Abnormal CT scan, gastrointestinal tract Rash and nonspecific skin eruption URI with cough and congestion Sinus congestion Excessive ear wax Insomnia Fatigue Vitamin D deficiency Rash of hands Mixed hyperlipidemia Gastroesophageal reflux disease without esophagitis Cardiac arrhythmia Candidal dermatitis ASHD (arteriosclerotic heart disease) Colonic varices Colon cancer screening Depression HLD (hyperlipidemia) Social History Social History Smoking status: Former smoker Tobacco type: cigarettes Smoking end date: 05/30/91 Alcohol intake: never Substance use: never Substance use type: does not use Do You Feel Safe in your Home?: Yes Lack of Transportation: No Lack of Food: Never True Current Housing: I Have Housing Concerned About Future Housing: No Difficulty Paying Gas/Electric Bills: No Difficulty Paying for Meds: No Currently Unemployed: No Education: High School Diploma/GED Difficulty w/ Childcare or Family Care: No Living arrangements: with family Spiritual care concerns: No Meds Home Medications and Allergies Home Medications ?Medication ?Instructions ?Recorded ?Confirmed ?Type aspirin 81 mg tablet,delayed 81 mg PO DAILY 05/25/19 11/28/24 History release atorvastatin 40 mg tablet 40 mg PO DAILY 05/25/19 11/28/24 History metoprolol succinate 25 mg 25 mg PO DAILY 05/25/19 11/28/24 History tablet,extended release 24 hr timolol 0.25 % eye drops (Betimol) See Rx Instructions .Route .COMPLEX 05/25/19 11/28/24 History lorazepam 0.5 mg tablet (Ativan) 0.5 mg PO BID PRN anxiety #30 tabs 04/03/24 11/28/24 Rx venlafaxine 150 mg 150 mg PO DAILY #90 caps 08/21/24 11/28/24 Rx capsule,extended release 24 hr pantoprazole 40 mg tablet,delayed See Rx Instructions .Route 08/27/24 11/28/24 Rx release .COMPLEX #90 tabs olanzapine 15 mg tablet See Rx Instructions .Route 10/23/24 11/28/24 Rx .COMPLEX #90 tabs ondansetron 4 mg disintegrating 4 mg PO Q8H PRN nausea and 10/27/24 11/28/24 Rx tablet vomiting #30 tabs donepezil 10 mg tablet See Rx Instructions .Route 11/21/24 11/28/24 Rx .COMPLEX #180 tabs Allergies Allergy/AdvReac Type Severity Reaction Status Date / Time No Known Allergies Allergy Verified 11/27/24 19:31 Vital Signs Vital Signs - 24 hr 11/27/24 20:22 11/27/24 20:50 11/27/24 20:50 Temperature 36.4 C L Pulse Rate 94 72 74 Respiratory Rate 16 19 Blood Pressure 109/77 109/76 Pulse Oximetry 100 96 Oxygen Delivery Room Air 11/28/24 01:39 11/28/24 01:55 11/28/24 02:25 Temperature Pulse Rate 72 72 Respiratory Rate 15 15 Blood Pressure 133/86 133/86 Pulse Oximetry 100 100 Oxygen Delivery Room Air 11/28/24 04:00 11/28/24 08:00 Temperature 36.8 C Pulse Rate 60 Respiratory Rate 18 Blood Pressure 140/81 Pulse Oximetry 100 Oxygen Delivery Room Air Exam 2 Narrative: Exam today revealed him to be awake alert cooperative in no obvious acute distress, head normocephalic with no bruit, neck supple with no cervical bruit no thyromegaly no lymphadenopathy, heart regular with no murmur, lungs clear to auscultation with no rhonchi or crepitations, abdomen is soft nontender, neurologically he is awake alert aware of being in the hospital, his speech not dysphasic any followed all the verbal commands appropriately, pupils round regular lai of vision full to finger confrontation in all 4 quadrants, extraocular movements full with no nystagmus, facial sensation intact, face symmetrical, tongue in the oral cavity with no fasciculation, and motor examination revealed him to have fairly symmetrical strength and tone upper and lower extremity with downgoing plantar responses. And also no evidence of cerebellar dysfunction Results Labs 11/27/24 20:59 11/27/24 20:59 Labs: Short CBC 11/27/24 Range/Units 20:59 WBC 5.2 (4.5-10.0) K/mm3 Hgb 12.6 L (14.0-18.0) g/dL Hct 41.5 L (42.0-52.0) % Plt Count 257 (150-375) k/mm3 BMP 11/27/24 20:59 Sodium 139 Potassium 3.3 L Chloride 105 Carbon Dioxide 22 BUN 9 Creatinine 1.06 Glucose 124 H Calcium 8.8 Cardiac Enzymes 11/27/24 Range/Units 20:59 Total Creatine Kinase 172 H (55-170) U/L Troponin I 0.012 (0.000-0.034) ng/mL Liver Function 11/27/24 Range/Units 20:59 Total Bilirubin 0.5 (0.2-1.3) mg/dL AST 47 (17-59) U/L ALT 26 (6-50) U/L Alkaline Phosphatase 101 (38-126) U/L Albumin 3.5 (3.5-5.1) g/dL Urine 11/27/24 Range/Units 23:29 Urine Color Yellow (Yellow) Urine Appearance Clear (Clear) Urine pH 6.5 (5.0-9.0) Ur Specific [place] > 1.045 H (1.001-1.035) Urine Protein Negative (Negative) mg/dL Urine Glucose (UA) Negative (Negative) mg/dL
[2024-11-28 13:29] VITALS: BMI 25.6
[2024-11-28 13:48] VITALS: BP 109/70; PULSE 65; RESP 16; TEMP 36.3; O2SAT 98
[2024-11-28] MEDS: PANTOPRAZOLE 40 MG TABLET PO (14:05)
[2024-11-28 20:00] VITALS: PULSE 62; RESP 16; O2SAT 97
[2024-11-28 21:31] VITALS: BP 108/73; PULSE 62; RESP 16; TEMP 36.6; O2SAT 97
[2024-11-28] MEDS: TIMOLOL MALEATE 0.25% OP SOLN 5 ML BOTTLE 1 DROP EACH EYE (21:39)
[2024-11-29] MEDS: PIPERACILLN/TAZ 3.375GM/NS50ML 3.375 GM/50 ML BAG IVPB ×2 (00:30→05:28)
[2024-11-29 05:54] VITALS: BP 141/78; PULSE 59; RESP 16; TEMP 36.3; O2SAT 95
[2024-11-29 06:51] LABS: Hematocrit 37.2 % (42.0-52.0); Hemoglobin 11.2 g/dL (14.0-18.0); Immature Granulocyte Percent A 0.5 % (0-0.5); Lymphocytes Absolute Auto 1.04 K/mm3 (0.9-3.2); Mean Corpuscular HGB Conc 30.1 g/dl (32-36); Mean Corpuscular Hemoglobin 28.5 pg (26-34); Mean Corpuscular Volume 94.7 fl (80-100); Nucleated Red Blood Cells Absolute Auto 0.000 K/mm3 (0.0-0.012); Nucleated Red Blood Cells Perc 0.0 % (0.0-0.2); Platelet Count Result 188 k/mm3 (150-375); Red Blood Count 3.93 M/mm3 (4.6-6.20); White Blood Count 3.9 K/mm3 (4.5-10.0)
[2024-11-29 07:01] LABS: Alanine Aminotransferase 20 U/L (6-50); Albumin Level 2.7 g/dL (3.5-5.1); Alkaline Phosphatase 80 U/L (38-126); Anion Gap 6 mmol/L (4-12); Aspartate Amino Transferase 46 U/L (17-59); Bilirubin,Total 0.5 mg/dL (0.2-1.3); Blood Urea Nitrogen 4 mg/dL (9-20); Calcium 8.2 mg/dL (8.4-10.2); Carbon Dioxide 23 mmol/L (22-30); Chloride 110 mmol/L (98-107); Estimated CRCL calculation 62 ml/min; Estimated Glomerular Filt Rate > 60; Glucose 94 mg/dL (65-110); Lipase 189 U/L (23-300); Magnesium 1.9 mg/dL (1.6-2.3); Potassium 3.8 mmol/L (3.4-5.0); Sodium 139 mmol/L (137-145); Total Protein 5.8 g/dL (6.3-8.2)
[2024-11-29 07:03] LABS: INR 1.3; Prothrombin Time 16.1 Seconds (11.1-14.7)
[2024-11-29 07:04] LABS: Partial Thromboplastin Time 28.7 Seconds (22.3-36.8)
--- NOTE | 2024-11-29 07:15 | P.PNGI_ITS ---
Progress Note: A&P Assessment and Plan (1) Portal vein thrombosis: Code(s): I81 - Portal vein thrombosis Status: Acute (2) Abnormal CT scan, gastrointestinal tract: Code(s): R93.3 - Abnormal findings on diagnostic imaging of other parts of digestive tract Status: Acute Assessment and Plan: The colonic abnormalities seen on CT scan do not appear consistent with infectious colitis. As discussed yesterday, the patient lacks clinical evidence of colitis (persistent pain, diarrhea). Instead, these findings likely represen t changes associated with portal vein cavernous transformation, indicative of prior portal vein thrombosis. This underlying issue can explain the prominent rectal vessels observed on recent colonoscopy and the mucosal thickening due to venous congestion. Given this assessment, antibiotics are not necessary and will be discontinued. Similarly, since the patient is not experiencing acute GI bleeding, intravenous pantoprazole will also be stopped. Discontinuing both IV antibiotics and IV pantoprazole helps mitigate the risk of Clostridioides difficile infection. We are still awaiting further imaging studies, specifically MRI and MRCP, to better characterize a possible mass seen on CT scan and a repeat Doppler sonogram of the mesenteric vessels to assess the hemodynamic aspect. Subjective Date/time seen: 11/29/24 07:15 Objective Data Vital Signs Vital Signs: Vital Signs - 24 hr 11/28/24 08:00 11/28/24 13:48 11/28/24 20:00 Temperature 97.4 F L Pulse Rate 65 62 Respiratory Rate 16 16 Blood Pressure 109/70 Pulse Oximetry 98 97 Oxygen Delivery Room Air Room Air 11/28/24 21:31 11/29/24 05:54 Temperature 97.8 F 97.4 F L Pulse Rate 62 59 L Respiratory Rate 16 16 Blood Pressure 108/73 141/78 H Pulse Oximetry 97 95 Oxygen Delivery Intake/Output Intake/Output: Intake & Output 11/26/24 11/27/24 11/28/24 11/29/24 23:59 23:59 23:59 23:59 Intake Total 1000 3070 100 Output Total 225 Balance 1000 2845 100 Meds/Results Medications: Active Medications Generic Name Dose Route Start Last Admin Trade Name Freq PRN Reason Stop Dose Admin Aspirin 81 mg 11/29/24 09:00 Aspirin 81 Mg Enteric Tablet PO DAILY [facility] Atorvastatin Calcium 40 mg 11/29/24 09:00 Atorvastatin 40 Mg Tablet PO DAILY [facility] Sodium Chloride 1,000 mls @ 125 mls/hr 11/28/24 00:35 11/28/24 21:01 Normal Saline Iv IV CONT 125 mls/hr .Q8H [facility] Administration Lorazepam 0.5 mg 11/28/24 13:21 Lorazepam (*Crx) 0.5 Mg Tablet PO BID PRN anxiety Metoprolol Succinate 25 mg 11/29/24 09:00 Metoprolol Succinate Ext Rel 25 Mg Tabcr PO DAILY [facility] Olanzapine 15 mg 11/28/24 21:00 11/28/24 21:01 Olanzapine 5 Mg Tablet PO 15 mg HS [facility] Administration Ondansetron HCl 4 mg 11/28/24 13:21 Ondansetron Hcl Odt 4 Mg Tablet PO Q8H PRN nausea and vomiting Pantoprazole Sodium 40 mg 11/28/24 14:00 11/28/24 14:05 Pantoprazole 40 Mg Tablet PO 40 mg DAILY [facility] Administration Timolol Maleate 1 drop 11/28/24 21:00 11/28/24 21:39 Timolol Maleate 0.25% Op Soln 5 Ml Bottle EACH EYE 1 drop Q12HR [facility] Administration Venlafaxine HCl 150 mg 11/29/24 09:00 Venlafaxine Hcl Xr 75 Mg Cap.Er.24h PO DAILY [facility] Radiology Results: ITS Impressions Chest X-Ray 11/27/24 21:36 IMPRESSION: No acute cardiopulmonary pathology. Head CT 11/27/24 21:56 IMPRESSION: No acute intracranial findings. Chest/Abdomen/Pelvis CTA 11/27/24 22:17 IMPRESSION: CHEST: 1. 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 2. No pulmonary embolism. No aortic dissection or aneurysm. 3. No acute cardiopulmonary pathology. ABDOMEN/PELVIS: 1. Fat stranding, thickening of the wall and prominent vessels around the sigmoid and descending colon. Differential include inflammatory versus infectious colitis. Ischemic bowel disease and mesenteritis are less likely. Cl inical correlation and follow-up advised. 2. 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 3. Possible thickening in the wall of the cecum. Colonoscopy advised. 4. 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 5. Highly suggestive mass in the head of the pancreas. MRI evaluation advised. Yvonne English PA-C was notified with the result of the patient at 10:55 PM on November 27, 2024 Brain MRI 11/28/24 12:10 IMPRESSION: 1. No acute intracranial process or abnormally enhancing brain lesions. 2. A couple small foci of susceptibility artifact in the bilateral cerebral hemispheres consistent with sequela of chronic microhemorrhage such as in the setting of hypertension. Differential would also include less likely amyloid a ngiopathy. Labs Labs: Laboratory Results - last 24 hr 11/28/24 11/29/24 06:14 06:29 WBC 3.9 L RBC 3.93 L Hgb 11.2 L Hct 37.2 L MCV 94.7 MCH 28.5 MCHC 30.1 L RDW 15.0 H Plt Count 188 MPV 9.2 Immature Gran % (Auto) 0.5 Neut % (Auto) 54.3 Lymph % (Auto) 26.4 [place] % (Auto) 11.4 H Eos % (Auto) 6.6 H Baso % (Auto) 0.8 Lymph # (Auto) 1.04 [place] # (Auto) 0.5 Eos # (Auto) 0.3 Baso # (Auto) 0.0 Abs Immat Gran (auto) 0.02 Absolute Neuts (auto) 2.1 Absolute Nucleated RBC 0.000 Nucleated RBC % 0.0 PT 16.1 H INR 1.3 APTT 28.7 Sodium 139 Potassium 3.8 Chloride 110 H Carbon Dioxide 23 Anion Gap 6 BUN 4 L D Creatinine 0.90 Estim Creat Clear Calc 62 Estimated GFR > 60 Glucose 94 Calcium 8.2 L Magnesium 1.9 Total Bilirubin 0.5 AST 46 ALT 20 Alkaline Phosphatase 80 Total Protein 5.8 L Albumin 2.7 L Lipase 189 Vitamin B12 676.0 Vitamin D 25-Hydroxy 47.6
[2024-11-29 07:56] LABS: Thyroid Stimulating Hormone Reflex 2.640 uIU/mL (0.465-4.68)
[2024-11-29] MEDS: TIMOLOL MALEATE 0.25% OP SOLN 5 ML BOTTLE 1 DROP EACH EYE ×2 (10:24→21:32)
--- NOTE | 2024-11-29 12:44 | P.PNIM_ITS ---
Progress Note: A&P Assessment and Plan (1) Abnormal CT scan, gastrointestinal tract: Code(s): R93.3 - Abnormal findings on diagnostic imaging of other parts of digestive tract Status: Acute Assessment and Plan: * Findings concern for colitis as outlined in number to that also a thickened appearance of the wall of the cecum warranting colonoscopy. GI team on board no indication for colonoscopy. 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 Child at [facility] and they will follow as outpatient. * Also findings that are highly suggestive of a mass on the head of the pancreas measuring 1.5 cm x 3.1 cm are identified. * MRI/MRCP pending to further evaluate potential mass on the head of the pancreas.Will get MRI (2) Colitis: Code(s): K52.9 - Noninfective gastroenteritis and colitis, unspecified Status: Acute Assessment and Plan: * Pt is not meeting sepsis criteria. * CT scan showing multiple abnormalities including fat stranding and thickening of the sigmoid and descending colon considering inflammatory versus infectious colitis, and was independently reviewed by this admitting provider. * Patient did just recently finished Cipro and Flagyl but is continuing to have symptoms. * Consult GI * Continue IV Zosyn has been discontinued by GI team. does not have colitis * Blood cultures have been obtained and are pending. (3) Generalized weakness: Code(s): R53.1 - Weakness Status: Acute Assessment and Plan: * Etiology likely multifactorial from recently having repeat colitis and being symptomatic with continued abdominal pain, diarrhea and poor appetite * Labs do not show an overt dehydration, or metabolic derangement. * There is potential for intra-abdominal findings as outlined above and numbers 1 and 2 causing patient's symptoms of generalized weakness. * As patient did have an NIH score of 1 for this provider accompanied by presenting symptoms of dizziness and weakness MRI of brain neg for acute abnormality.MRI of cervical spine pending. * CT Scan negative in ER and was independently viewed by this admitting provider. * Neurology on board * MRI brain unremarkable/ plan for Neck MRI. NCV as outpatient * Monitor and trend daily labs and VS. (4) Dizziness: Code(s): R42 - Dizziness and giddiness Status: Acute Assessment and Plan: * See 3. (5) GERD (gastroesophageal reflux disease): Code(s): K21.9 - Gastro-esophageal reflux disease without esophagitis Status: Chronic Assessment and Plan: * DC ppi per GI team (6) Anxiety: Code(s): F41.9 - Anxiety disorder, unspecified Status: Chronic Assessment and Plan: * Continue home medications once they have been confirmed and verified. * In the meantime a p.r.n. dose of Ativan 0.5 q.6 hours p.r.n. anxiety is ordered. (7) Aneurysm of inferior mesenteric artery: Code(s): I72.8 - Aneurysm of other specified arteries Status: Acute Assessment and Plan: * As noted per CT scan. This was independently reviewed by myself. * ER provider spoke with vascular specialist Dr. Child at [facility], and he will follow up with pt as outpt. Subjective Date/time seen: 11/29/24 12:44 Interval history: per HPI: This is a very pleasant 74-year-old male patient with past medical history of vitamin-D deficiency, hyperlipidemia, Tony's esophagus, atherosclerotic heart disease, depression, hyperlipidemia who was a former smoker that quit in 1991 in who recently was treated as an outpatient for colitis with Cipro and Flagyl who comes to the emergency room today with complaints of having dizziness. Patient reports that since he has been treated for colitis he has had decreased intake, poor appetite and continues to have some abdominal discomfort on right side as well as loose stools without any melena or hematochezia. He was today moving some boxes around outside and became winded and felt clammy. He then switched activities and set on his lawnmower and noted that while sitting on his lawnmower he had left shoulder pain and right hip pain. This pain was only present while on the lawnmower. He felt as though he was shifting his weight to the right side. Patient's states that she when outside and noted that he was leaning to the right side as well. Patient denies any injury to the hip or the shoulder and states that discomfort is resolved. He denied any chest pain or dyspnea. Does note that his jeans are becoming very loose along with his loss of appetite and he is not sure however as he does not have a scale how much possible weight he may have lost. Upon arrival to the emergency room workup was performed. Patient noted to be having generalized weakness. His cranial nerves were noted to be intact and although there was concern for potential slurred speech his states that his speech to her was normal. ER provider moist to me that he did have some difficulty with moving finger to nose repeatedly on the right side but if this is a variant it is unknown when his last known well was. And night score of 1-2 at most. Vital signs are normal in ER. Normal sinus rhythm showing 86 beats per minute with an incomplete right bundle-branch block and left anterior fascicular block. CBC is unremarkable, metabolic panel remarkable only for mild decreased potassium at 3.3. Lactic acid normal at 1.9, magnesium normal at 2.0. LFTs and bilirubin are normal, normal CK, negative troponin, CRP is 1.1. Urinalysis without appearance of infection. Coags are normal. Chest x-ray was performed that does not show any acute cardiopulmonary abnormalities. CT of the head was performed and is negative for inter cranial abnormalities. CTA chest abdomen pelvis was performed and patient is without any findings of pulmonary embolism. There is however fat stranding, 6 sigmoid colon and descending colon that appears inflammatory versus infectious colitis. 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 The mass measures 1.5 x 3.1 cm. It is noted that this was not present on CT abdomen and pelvis with contrast performed November 14, 2024. Significance is unclear, however patient is going to be admitted in the setting recurrent colitis, dizziness, generalized weakness and abnormal CT scan. The emergency room provider did speak with Dr. Child vascular surgeon [facility] regarding the inferior mesenteric artery fusiform aneurysmal dilation and he advised he will follow-up with patient as outpatient. 11/28/24 Patient was seen and examined at bedside. he is feeling fine. denies chest pain, SOb, abd pain is better. no N/V. has dizziness/weakness. neurology team on board.MRI brain neg. will get MRI neck. RIV as outpatient. GI team on board . plan for liver US and abd MRI to evaluate pancreas mass, 11/29/24 Patient was seen and examined at bedside. he is feeling better. denies any chest pain, SOB,a bd pain, N/V Gi team onboard PPI and abx has been Dc'd. Will follow us and MRCP today Lab test showed Hb 11.2. no bleeding reported. continue to monitor. Review of Systems Review of Systems: All systems reviewed & are unremarkable except as noted in HPI and below Exam Const: General: comfortable and no acute distress Other: Elderly male pt, appears generally weak and ill appearing. HENMT: Face/Nose/Sinus: Normal nares present Mouth: Yes dry mucous membranes Eyes: General: appearance normal, both eyes and all related structures Sclera: sclerae normal Pupils: Equal, round and reactive pupils present EOM: EOMs intact bilaterally Neck: Neck: supple and no JVD Lymphatic: lymphadenopathy not noted Resp: Effort & Inspection: normal respiratory effort Auscultation: clear to auscultation bilaterally Cardio: Rate: regular rate Rhythm: regular rhythm Heart sounds: no gallops, no murmurs and no rubs GI: Inspection: non-distended Auscultation: normal bowel sounds Other: Negative Steve's sign Skin: General skin exam: No normal color (Pallor), no rashes or lesions noted, no erythema, No lesion and No rashes Lesions: no lesions noted Rashes: no rashes noted Wounds: no wounds Neuro: Cranial nerves: Yes Equal, round and reactive pupils present Speech: normal speech (Normal for pt) Motor exam (neuro): strength not 5/5 throughout and Abnormal motor strength present (4/4 BUE, 4/4 BLE and equal.) Sensory Exam: normal sensation Other: No focal deficits noted. NIH: 1 Extrem: General: normal to inspection, no edema and no pedal edema Psych: Mental Status: mental status grossly normal Objective Data Vital Signs Vital Signs: Vital Signs - 24 hr 11/28/24 13:48 11/28/24 20:00 11/28/24 21:31 Temperature 97.4 F L 97.8 F Pulse Rate 65 62 62 Respiratory Rate 16 16 16 Blood Pressure 109/70 108/73 Pulse Oximetry 98 97 97 Oxygen Delivery Room Air 11/29/24 05:54 Temperature 97.4 F L Pulse Rate 59 L Respiratory Rate 16 Blood Pressure 141/78 H Pulse Oximetry 95 Oxygen Delivery Intake/Output Intake/Output: Intake & Output 11/26/24 11/27/24 11/28/24 11/29/24 23:59 23:59 23:59 23:59 Intake Total 1000 3070 100 Output Total 225 Balance 1000 2845 100 Meds/Results Medications: Active Medications Generic Name Dose Route Start Last Admin Trade Name Freq PRN Reason Stop Dose Admin Aspirin 81 mg 11/29/24 09:00 Aspirin 81 Mg Enteric Tablet PO DAILY [facility] Atorvastatin Calcium 40 mg 11/29/24 09:00 Atorvastatin 40 Mg Tablet PO DAILY [facility] Sodium Chloride 1,000 mls @ 125 mls/hr 11/28/24 00:35 11/29/24 08:35 Normal Saline Iv IV CONT Not Given .Q8H [facility] Lorazepam 0.5 mg 11/28/24 13:21 Lorazepam (*Crx) 0.5 Mg Tablet PO BID PRN anxiety Metoprolol Succinate 25 mg 11/29/24 09:00 Metoprolol Succinate Ext Rel 25 Mg Tabcr PO DAILY [facility] Olanzapine 15 mg 11/28/24 21:00 11/28/24 21:01 Olanzapine 5 Mg Tablet PO 15 mg HS [facility] Administration Ondansetron HCl 4 mg 11/28/24 13:21 Ondansetron Hcl Odt 4 Mg Tablet PO Q8H PRN nausea and vomiting Pantoprazole Sodium 40 mg 11/28/24 14:00 11/28/24 14:05 Pantoprazole 40 Mg Tablet PO 40 mg DAILY [facility] Administration Timolol Maleate 1 drop 11/28/24 21:00 11/29/24 10:24 Timolol Maleate 0.25% Op Soln 5 Ml Bottle EACH EYE 1 drop Q12HR [facility] Administration Venlafaxine HCl 150 mg 11/29/24 09:00 Venlafaxine Hcl Xr 75 Mg Cap.Er.24h PO DAILY [facility] Radiology Results: ITS Impressions Chest X-Ray 11/27/24 21:36 IMPRESSION: No acute cardiopulmonary pathology. Head CT 11/27/24 21:56 IMPRESSION: No acute intracranial findings. Chest/Abdomen/Pelvis CTA 11/27/24 22:17 IMPRESSION: CHEST: 1. 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 2. No pulmonary embolism. No aortic dissection or aneurysm. 3. No acute cardiopulmonary pathology. ABDOMEN/PELVIS: 1. Fat stranding, thickening of the wall and prominent vessels around the sigmoid and descending colon. Differential include inflammatory versus infectious colitis. Ischemic bowel disease and mesenteritis are less likely. Clinical correlation and follow-up advised. 2. 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 3. Possible thickening in the wall of the cecum. Colonoscopy advised. 4. 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 5. Highly suggestive mass in the head of the pancreas. MRI evaluation advised. Yvonne English PA-C was notified with the result of the patient at 10:55 PM on November 27, 2024 Brain MRI 11/28/24 12:10 IMPRESSION: 1. No acute intracranial process or abnormally enhancing brain lesions. 2. A couple small foci of susceptibility artifact in the bilateral cerebral hemispheres consistent with sequela of chronic microhemorrhage such as in the setting of hypertension. Differential would also include less likely amyloid angiopathy. Labs Labs: Laboratory Results - last 24 hr 11/29/24 06:29 WBC 3.9 L RBC 3.93 L Hgb 11.2 L Hct 37.2 L MCV 94.7 MCH 28.5 MCHC 30.1 L RDW 15.0 H Plt Count 188 MPV 9.2 Immature Gran % (Auto) 0.5 Neut % (Auto) 54.3 Lymph % (Auto) 26.4 [place] % (Auto) 11.4 H Eos % (Auto) 6.6 H Baso % (Auto) 0.8 Lymph # (Auto) 1.04 [place] # (Auto) 0.5 Eos # (Auto) 0.3 Baso # (Auto) 0.0 Abs Immat Gran (auto) 0.02 Absolute Neuts (auto) 2.1 Absolute Nucleated RBC 0.000 Nucleated RBC % 0.0 PT 16.1 H INR 1.3 APTT 28.7 Sodium 139 Potassium 3.8 Chloride 110 H Carbon Dioxide 23 Anion Gap 6 BUN 4 L D Creatinine 0.90 Estim Creat Clear Calc 62 Estimated GFR > 60 Glucose 94 Calcium 8.2 L Magnesium 1.9 Total Bilirubin 0.5 AST 46 ALT 20 Alkaline Phosphatase 80 Total Protein 5.8 L Albumin 2.7 L Lipase 189 TSH (Reflex) 2.640 Quality VTE Prophylaxis VTE prophylaxis: mechanical ordered
[2024-11-29 14:00] VITALS: BP 125/77; PULSE 53; RESP 18; TEMP 36.4; O2SAT 96
[2024-11-29] MEDS: PANTOPRAZOLE 40 MG TABLET PO (15:27)
[2024-11-29] MEDS: ATORVASTATIN 40 MG TABLET PO (15:27)
[2024-11-29] MEDS: VENLAFAXINE HCL XR 75 MG CAP.ER.24H 150 MG PO (15:27)
[2024-11-29] MEDS: ASPIRIN 81 MG ENTERIC TABLET PO (15:27)
[2024-11-29] MEDS: METOPROLOL SUCCINATE EXT REL 25 MG TABCR PO (15:27)
[2024-11-29] MEDS: SODIUM CHLORIDE 0.9% IV 1,000 ML 50 ML IV CONT (15:29)
[2024-11-29 20:00] VITALS: PULSE 71; RESP 16; O2SAT 94
[2024-11-29 21:41] VITALS: BP 108/72; PULSE 71; RESP 16; TEMP 36.2; O2SAT 94
[2024-11-30 06:00] VITALS: BP 118/75; PULSE 58; RESP 20; TEMP 36.4; O2SAT 96
[2024-11-30 06:13] LABS: Hematocrit 37.7 % (42.0-52.0); Hemoglobin 11.4 g/dL (14.0-18.0); Mean Corpuscular HGB Conc 30.2 g/dl (32-36); Mean Corpuscular Hemoglobin 28.4 pg (26-34); Mean Corpuscular Volume 94.0 fl (80-100); Platelet Count Result 200 k/mm3 (150-375); Red Blood Count 4.01 M/mm3 (4.6-6.20); White Blood Count 4.2 K/mm3 (4.5-10.0)
[2024-11-30 06:25] LABS: Alanine Aminotransferase 26 U/L (6-50); Albumin Level 3.0 g/dL (3.5-5.1); Alkaline Phosphatase 88 U/L (38-126); Anion Gap 6 mmol/L (4-12); Aspartate Amino Transferase 52 U/L (17-59); Bilirubin,Total 0.6 mg/dL (0.2-1.3); Blood Urea Nitrogen 6 mg/dL (9-20); Calcium 8.5 mg/dL (8.4-10.2); Carbon Dioxide 24 mmol/L (22-30); Chloride 107 mmol/L (98-107); Estimated CRCL calculation 77 ml/min; Estimated Glomerular Filt Rate > 60; Glucose 96 mg/dL (65-110); Potassium 3.8 mmol/L (3.4-5.0); Sodium 137 mmol/L (137-145); Total Protein 6.3 g/dL (6.3-8.2)
[2024-11-30 08:36] VITALS: PULSE 71
[2024-11-30] MEDS: TIMOLOL MALEATE 0.25% OP SOLN 5 ML BOTTLE 1 DROP EACH EYE (08:36)
[2024-11-30] MEDS: PANTOPRAZOLE 40 MG TABLET PO (08:36)
[2024-11-30] MEDS: ATORVASTATIN 40 MG TABLET PO (08:36)
[2024-11-30] MEDS: METOPROLOL SUCCINATE EXT REL 25 MG TABCR PO (08:36)
[2024-11-30] MEDS: VENLAFAXINE HCL XR 75 MG CAP.ER.24H 150 MG PO (08:36)
[2024-11-30] MEDS: ASPIRIN 81 MG ENTERIC TABLET PO (08:36)
--- NOTE | 2024-11-30 10:29 | WPDGIPROGNO ---
Progress Note: A&P Assessment and Plan (1) Colonic varices: Code(s): I86.8 - Varicose veins of other specified sites Status: Acute Assessment and Plan: Recent imaging studies have been very clarifying regarding the patient's condition. The MRI definitively ruled out a pancreatic mass, which had been suggested by an earlier CT scan reading. We're still seeing residual thickening of the left colon, which we believe is connected to venous congestion originating in a previously recanalized portal vein thrombosis. This is supported by yesterday's Doppler sonogram, which demonstrated adequate flow in the portal vein despite showing cavernous transformation?a clear sign of a past portal vein thrombosis that has successfully recanalized with collateral vessels. The previously noted engorged veins on colonoscopy corroborate this theory. Clinically, the patient is stable, reporting no abdominal pain, and stools were formed today. He can be discharged home, with follow-up scheduled in GI clinic. Subjective Date/time seen: 11/30/24 10:29 Objective Data Vital Signs Vital Signs: Vital Signs - 24 hr 11/29/24 13:41 11/29/24 14:00 11/29/24 20:00 Temperature 97.5 F L Pulse Rate 53 L 71 Respiratory Rate 18 16 Blood Pressure 125/77 Pulse Oximetry 96 94 Oxygen Delivery Room Air Room Air 11/29/24 21:41 11/30/24 06:00 11/30/24 08:36 Temperature 97.1 F L 97.5 F L Pulse Rate 71 58 L 71 Respiratory Rate 16 20 Blood Pressure 108/72 118/75 Pulse Oximetry 94 96 Oxygen Delivery Intake/Output Intake/Output: Intake & Output 11/27/24 11/28/24 11/29/24 11/30/24 23:59 23:59 23:59 23:59 Intake Total 1000 3070 1440 340 Output Total 225 225 300 Balance 1000 2845 1215 40 Meds/Results Medications: Active Medications Generic Name Dose Route Start Last Admin Trade Name Freq PRN Reason Stop Dose Admin Aspirin 81 mg 11/29/24 09:00 11/30/24 08:36 Aspirin 81 Mg Enteric Tablet PO 81 mg DAILY AVANI Administration Atorvastatin Calcium 40 mg 11/29/24 09:00 11/30/24 08:36 Atorvastatin 40 Mg Tablet PO 40 mg DAILY AVANI Administration Lorazepam 0.5 mg 11/28/24 13:21 Lorazepam (*Crx) 0.5 Mg Tablet PO BID PRN anxiety Metoprolol Succinate 25 mg 11/29/24 09:00 11/30/24 08:36 Metoprolol Succinate Ext Rel 25 Mg Tabcr PO 25 mg DAILY AVANI Administration Olanzapine 15 mg 11/28/24 21:00 11/29/24 21:32 Olanzapine 5 Mg Tablet PO 15 mg HS AVANI Administration Ondansetron HCl 4 mg 11/28/24 13:21 Ondansetron Hcl Odt 4 Mg Tablet PO Q8H PRN nausea and vomiting Pantoprazole Sodium 40 mg 11/28/24 14:00 11/30/24 08:36 Pantoprazole 40 Mg Tablet PO 40 mg DAILY AVANI Administration Timolol Maleate 1 drop 11/28/24 21:00 11/30/24 08:36 Timolol Maleate 0.25% Op Soln 5 Ml Bottle EACH EYE 1 drop Q12HR AVANI Administration Venlafaxine HCl 150 mg 11/29/24 09:00 11/30/24 08:36 Venlafaxine Hcl Xr 75 Mg Cap.Er.24h PO 150 mg DAILY AVANI Administration Radiology Results: ITS Impressions Chest X-Ray 11/27/24 21:36 IMPRESSION: No acute cardiopulmonary pathology. Head CT 11/27/24 21:56 IMPRESSION: No acute intracranial findings. Chest/Abdomen/Pelvis CTA 11/27/24 22:17 IMPRESSION: CHEST: 1. 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 2. No pulmonary embolism. No aortic dissection or aneurysm. 3. No acute cardiopulmonary pathology. ABDOMEN/PELVIS: 1. Fat stranding, thickening of the wall and prominent vessels around the sigmoid and descending colon. Differential include inflammatory versus infectious colitis. Ischemic bowel disease and mesenteritis are less likely. Clinical correlation and follow-up advised. 2. 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 3. Possible thickening in the wall of the cecum. Colonoscopy advised. 4. 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 5. Highly suggestive mass in the head of the pancreas. MRI evaluation advised. Yvonne English PA-C was notified with the result of the patient at 10:55 PM on November 27, 2024 Brain MRI 11/28/24 12:10 IMPRESSION: 1. No acute intracranial process or abnormally enhancing brain lesions. 2. A couple small foci of susceptibility artifact in the bilateral cerebral hemispheres consistent with sequela of chronic microhemorrhage such as in the setting of hypertension. Differential would also include less likely amyloid angiopathy. Cervical Spine MRI 11/29/24 15:49 IMPRESSION: 1. Mild cervical spondylosis with instrumented C5-C7 anterior spinal fusion and moderate to severe multilevel facet osteoarthritis. 2. 2.1 cm fusiform aneurysm and dissection at the proximal right subclavian artery. MRCP 11/29/24 16:44 IMPRESSION: 1. 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 The splenic, superior mesenteric, main and left and right portal veins all remain patent. 2. Normal pancreas. Artifactual appearance of a mass at the head of the pancreas on prior CT results from mixing of unopacified blood in the main portal vein due to arterial phase of contrast. 3. Persistent diffuse wall thickening along the descending colon consistent with colitis. 4. Small amount of likely reactive ascites throughout the abdomen and pelvis. Arterial/Peripheral Duplex 11/29/24 17:00 IMPRESSION: 1. Unremarkable study the portal venous system with patent splenic, superior mesenteric and portal veins with no evident thrombus. Labs Labs: Laboratory Results - last 24 hr 11/30/24 06:04 WBC 4.2 L RBC 4.01 L Hgb 11.4 L Hct 37.7 L MCV 94.0 MCH 28.4 MCHC 30.2 L RDW 15.0 H Plt Count 200 MPV 9.2 Sodium 137 Potassium 3.8 Chloride 107 Carbon Dioxide 24 Anion Gap 6 BUN 6 L Creatinine 0.71 Estim Creat Clear Calc 77 Estimated GFR > 60 Glucose 96 Calcium 8.5 Total Bilirubin 0.6 AST 52 ALT 26 Alkaline Phosphatase 88 Total Protein 6.3 Albumin 3.0 L
[2024-11-30 14:00] VITALS: BP 113/75; PULSE 61; RESP 18; TEMP 36.4; O2SAT 96
--- NOTE | 2024-11-30 14:32 | P.DS_ITS ---
DS: Admitting Diagnosis Discharge Date 11/30/24 Admitting Diagnosis Dizziness DS: Discharge Diagnosis Discharge Diagnosis (1) Abnormal CT scan, gastrointestinal tract: Code(s): R93.3 - Abnormal findings on diagnostic imaging of other parts of digestive tract Status: Acute Assessment and Plan: * Findings concern for colitis as outlined in number to that also a thickened appearance of the wall of the cecum warranting colonoscopy. GI team on board no indication for colonoscopy. 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 Child at [facility] and they will follow as outpatient. * Also findings that are highly suggestive of a mass on the head of the pancreas measuring 1.5 cm x 3.1 cm are identified. * MRI/MRCP pending to further evaluate potential mass on the head of the pancreas.Will get MRI (2) Colitis: Code(s): K52.9 - Noninfective gastroenteritis and colitis, unspecified Status: Acute Assessment and Plan: * Pt is not meeting sepsis criteria. * CT scan showing multiple abnormalities including fat stranding and thickening of the sigmoid and descending colon considering inflammatory versus infectious colitis, and was independently reviewed by this admitting provider. * Patient did just recently finished Cipro and Flagyl but is continuing to have symptoms. * Consult GI * Continue IV Zosyn has been discontinued by GI team. does not have colitis * Blood cultures have been obtained and are pending. (3) Generalized weakness: Code(s): R53.1 - Weakness Status: Acute Assessment and Plan: * Etiology likely multifactorial from recently having repeat colitis and being symptomatic with continued abdominal pain, diarrhea and poor appetite * Labs do not show an overt dehydration, or metabolic derangement. * There is potential for intra-abdominal findings as outlined above and numbers 1 and 2 causing patient's symptoms of generalized weakness. * As patient did have an NIH score of 1 for this provider accompanied by presenting symptoms of dizziness and weakness MRI of brain neg for acute abnormality.MRI of cervical spine pending. * CT Scan negative in ER and was independently viewed by this admitting provider. * Neurology on board * MRI brain unremarkable/ plan for Neck MRI. NCV as outpatient * Monitor and trend daily labs and VS. (4) Dizziness: Code(s): R42 - Dizziness and giddiness Status: Acute Assessment and Plan: * See 3. (5) GERD (gastroesophageal reflux disease): Code(s): K21.9 - Gastro-esophageal reflux disease without esophagitis Status: Chronic Assessment and Plan: * DC ppi per GI team (6) Anxiety: Code(s): F41.9 - Anxiety disorder, unspecified Status: Chronic Assessment and Plan: * Continue home medications once they have been confirmed and verified. * In the meantime a p.r.n. dose of Ativan 0.5 q.6 hours p.r.n. anxiety is ordered. (7) Aneurysm of inferior mesenteric artery: Code(s): I72.8 - Aneurysm of other specified arteries Status: Acute Assessment and Plan: * As noted per CT scan. This was independently reviewed by myself. * ER provider spoke with vascular specialist Dr. Child at [facility], and he will follow up with pt as outpt. DS: Summary Hospital Course Hospital Course: patient admitted with colitis and CT scan of abdomen was concerning for pancreatic mass, to further patient had MRCP of abdomen which showed normal pancreas. Artifactual appearance of a mass at the head of the pancreas on prior CT results from mixing of unopacified blood in the main portal vein due to arterial phase of contrast. there was no pancreatic mass observed. patient is seen by GI, patient is clinically stable, able to tolerate his diet and had BM, patient doing well, will discharge home today. Time Spent with Patient Time attestation: Total time spent providing and/or coordinating discharge services: Exam Narrative: Patient is comfortable, NAD HEENT: eyes are clear and none icteric LUNGS:CTA HEART: RR S1S2 ABD: BS+, Soft and nontender Lower extremities: no edema SKIN: nonjaundiced Neuro: grossly intact. DS: Data Data Completed and Pending Labs on day of discharge: Labs from last 24 hours 11/30/24 06:04 WBC 4.2 L RBC 4.01 L Hgb 11.4 L Hct 37.7 L MCV 94.0 MCH 28.4 MCHC 30.2 L RDW 15.0 H Plt Count 200 MPV 9.2 Sodium 137 Potassium 3.8 Chloride 107 Carbon Dioxide 24 Anion Gap 6 BUN 6 L Creatinine 0.71 Estim Creat Clear Calc 77 Estimated GFR > 60 Glucose 96 Calcium 8.5 Total Bilirubin 0.6 AST 52 ALT 26 Alkaline Phosphatase 88 Total Protein 6.3 Albumin 3.0 L Preliminary micro results at discharge 11/28/24 00:26 Blood Culture - Preliminary Blood 11/28/24 00:25 Blood Culture - Preliminary Blood Discharge Plan Discharge Attending physician on discharge: Huy Martinez Consulting providers: Rodriguez Shelton; Fabiola Swann; Drew Philip; Huy Martinez; Adilia Gage; Robert Vance; Dharmesh Beach; Keshanw Marti Discharging Clinician: Maria T Escalona Patient Disposition: Home Activity: as tolerated Diet: heart healthy Discharge Instructions: patient to follow up with Dr. Philip as soon as possible, patient to follow up with primary care provider as soon as possible, patient is instructed if any symptoms redevelop to go to nearest ER. Patient Instructions: Antibiotic Form Patient Language: Azeri Stand Alone Forms: General Discharge Information Follow-up/Referrals: Robert Hardy MD [Primary Care Provider] - Drew Philip MD [Physician] - Discharge Medications: Continued venlafaxine 150 mg capsule,extended release 24hr 150 mg PO DAILY Qty: 90 2RF Betimol 0.25 % drops See Rx Instructions .ROUTE .COMPLEX Rx Instructions: instill 1 drop by ophthalmic route 2 times everyday into affected eye(s) ; metoprolol succinate 25 mg tablet extended release 24 hr 25 mg PO DAILY atorvastatin 40 mg tablet 40 mg PO DAILY aspirin 81 mg tablet,delayed release (DR/EC) 81 mg PO DAILY ondansetron 4 mg tablet,disintegrating 4 mg PO Q8H PRN (Reason: nausea and vomiting) Qty: 30 0RF lorazepam [Ativan] 0.5 mg tablet 0.5 mg PO BID PRN (Reason: anxiety) Qty: 30 1RF pantoprazole 40 mg tablet,delayed release (DR/EC) See Rx Instructions .ROUTE .COMPLEX Qty: 90 2RF Dose Instruction: TAKE 1 TABLET BY MOUTH ONCE DAILY . APPOINTMENT REQUIRED FOR FUTURE REFILLS Rx Instructions: TAKE 1 TABLET BY MOUTH ONCE DAILY . APPOINTMENT REQUIRED FOR FUTURE REFILLS olanzapine 15 mg tablet See Rx Instructions .ROUTE .COMPLEX Qty: 90 2RF Dose Instruction: TAKE 1 TABLET BY MOUTH AT BEDTIME Rx Instructions: TAKE 1 TABLET BY MOUTH AT BEDTIME donepezil 10 mg tablet See Rx Instructions .ROUTE .COMPLEX Qty: 180 2RF Dose Instruction: Take 1 tablet by mouth once daily Rx Instructions: Take 1 tablet by mouth once daily Date of admission: 11/29/24 16:32 Primary Care Provider: Robert Hardy Admitting Provider: Jason Mabry Attending physician on admission: Huy Martinez Condition: Stable
== END 2024-11-30 15:30 | disposition home or self-care (01) | DRG 391 ==
LOC: ANHED 21:06 → ANH3MEDSUR 11-28 01:39
PROVIDERS: Nurse Practitioner Adult Health; Admitting Provider Internal Medicine; Emergency Provider Physician Assistant; PCP Emergency Medicine; Visit Provider Internal Medicine
DX: K52.9 Noninfective gastroenteritis and colitis, unspecified (principal); I81 Portal vein thrombosis; I86.8 Varicose veins of other specified sites; I72.8 Aneurysm of other specified arteries; R42 Dizziness and giddiness; I25.10 Atherosclerotic heart disease of native coronary artery without angina pectoris; E55.9 Vitamin D deficiency, unspecified; E78.2 Mixed hyperlipidemia; R53.1 Weakness; K21.9 Gastro-esophageal reflux disease without esophagitis; F41.9 Anxiety disorder, unspecified; F32.A Depression, unspecified; Z79.82 Long term (current) use of aspirin; Z87.891 Personal history of nicotine dependence
CPT/HCPCS: 36415; 70450; 70553; 71046; 71275; 72141; 74174; 74183; 76376; 80053; 81003; 82306; 82550; 82607; 83605; 83690; 83735; 84443; 84484; 85025; 85027; 85610; 85730; 86140; 87040; 93005; 93976; 96361; 96365; 96375; 97161; 97165; 99285; A9270; A9577; G0378; J2405; J2470; J2543; J7030; Q9967